=== PATIENT | female | born 1950 | race Caucasian/White ===

== ENCOUNTER 2016-05-31 04:56 | Inpatient (IN) ==
[2016-05-31] MEDS ORDERED: NS 500 ML IV ONE ×2 (05:07→12:02)
[2016-05-31 05:23] LABS: MANUAL DIFF NEEDED? NO
[2016-05-31 05:26] LABS: BASO% 0.2 % (0.0-0.8); EOS# 0.01 X1000 (0.0-0.7); EOS% 0.1 % (0.0-10.0); HEMATOCRIT 31.4 % (37.0-47.0); HEMOGLOBIN 10.2 g/dL (12.0-16.0); IMM GRAN# 0.02 X1000 (0.0-0.04); IMM GRAN% 0.2 % (0.0-0.5); LYMPH# 1.23 X1000 (1.2-3.4); LYMPH% 10.1 % (20.5-51.1); MCH 28.3 PG (27-31); MCHC 32.5 g/dL (33-37); MONO# 0.85 X1000 (0.11-0.59); MPV 10.5 FL (7.4-10.4); NEUT% 82.4 % (42.2-75.2); PLT 293 X1000 (130-400); RBC 3.61 XMIL (4.2-5.4)
[2016-05-31 06:07] LABS: CALCIUM 9.1 mg/dL (8.8-10.2); POTASSIUM 3.1 mmol/L (3.5-5.1); TOTAL BILIRUBIN 0.2 mg/dL (0.20-1.00)
[2016-05-31] MEDS ORDERED: NS 1,000 ML IV ONE ×2 (06:30→09:57)
[2016-05-31] MEDS ORDERED: KLOR-CON PO ONE (06:30)
[2016-05-31 06:56] LABS: PTT PL 39.9 Seconds (22.6-43.9)
[2016-05-31 07:16] LABS: INR 4.32 (0.86-1.15); PROTIME 40.9 Seconds (12.1-15.5)
--- NOTE | 2016-05-31 07:22 | PROVIDER DOCUMENTATION ---
HPI-Abdominal Pain/GI Problem - General Source: patient - History of Present Illness-ABD Nature of Presenting Problems: Diarrhea X 2-3 days and vomiting X 1 days with R flank pain. Denies F/C. Feels dehydrated and weak. Denies CP/SOB. H/o valve replacement X 20 years ago and currently taking Coumadin. Abdominal Pain Onset Location: reports: flank (R) Pain Radiation: reports: no radiation Quality of Pain: reports: aching, cramping Severity in ED: reports: mild, moderate Onset/Duration: reports: last night Timing: reports: still present Activities at Onset: reports: none Exposure to sick contacts?: No Modifying Factors: improves with: nothing Associated Symptoms: reports: fatigue, loss of appetite. denies: arm pain, back /neck pain, chest pain, constipation, fever/chills, nausea, vomiting, trouble walking Last BM: this morning Dark Stools Present?: reports: black Rectal Bleeding: reports: other (Bloack stools) # of Diarrhea Episodes: 10 # of Vomiting Episodes: 5 Bruising or Bleeding Gums?: No Similar Symptoms Previously?: No Recently seen or treated by another doctor?: No <Clair Bishop - Last Filed: 05/31/16 07:17> <Piyush Ugarte - Last Filed: 05/31/16 10:19> - General Chief Complaint: N/V/D Stated Complaint: diarrhea x 2 days Time Seen by Provider: 05/31/16 06:07 Allergies/Adverse Reactions: Patient Allergies Allergy/AdvReac Type Severity Reaction Status Date / Time codeine Allergy Mild HIVES Verified 05/31/16 05:02 oxycodone HCl * Allergy Mild HIVES Verified 05/31/16 05:02 [From Percocet] Penicillins Allergy Mild HIVES Verified 05/31/16 05:02 hydromorphone HCl * Allergy Unknown Verified 05/31/16 05:02 [From Dilaudid] Home Medications: Home Medication List Medication Instructions Recorded Confirmed Last Taken Type Furosemide [Lasix] 40 mg PO DAILY 01/22/13 05/31/16 05/30/16 History Gabapentin [Neurontin] 600 mg PO 4XDAY 01/22/13 05/31/16 05/30/16 History Methadone 10 mg PO [id number] PRN 01/22/13 05/31/16 05/30/16 History SIMVAstatin [Zocor] 40 mg PO QHS 01/22/13 05/31/16 05/30/16 History Ascorbic Acid [Vitamin C] 1,000 mg PO DAILY #0 tablet 01/25/13 05/31/16 Rx Cyclobenzaprine [Flexeril] 10 mg PO QHS PRN 10/20/13 05/31/16 05/30/16 History Potassium Chloride 10 meq PO DAILY 10/20/13 05/31/16 05/30/16 History Warfarin [Coumadin] 5 mg PO DAILY 10/20/13 05/31/16 05/30/16 History Review of Systems - Adult - REVIEW OF SYSTEMS - ADULT Constitutional: reports: see HPI, fatique. denies: chills, fever, weight loss Eyes: reports: no symptoms reported Ears, Nose, Mouth & Throat: reports: no symptoms reported Cardiovascular: reports: no symptoms reported Respiratory: reports: no symptoms reported Gastrointestinal: reports: see HPI, abdominal pain, diarrhea, nausea, poor appetite, rectal bleeding, vomiting. denies: difficulty swallowing, frequent heartburn Genitourinary: reports: no symptoms reported Musculoskeletal: reports: no symptoms reported Integumentary: reports: no symptoms reported Neurological: reports: no symptoms reported Psychiatric: reports: no symptoms reported Allergic/Immunologic: reports: no symptoms reported All Other Systems: Reviewed and Negative <Clair Bishop X - Last Filed: 05/31/16 07:17> Past History - Adult - PAST MEDICAL HISTORY-ADULT Review of Records: reports: Old Records Reviewed, Nursing Assessment Review, Medications Reviewed, Social history reviewed & non-contributory. Cardiovascular: reports: HTN, heart valve problem (Mitral Valve replaced) Neurological: reports: Seizures/Epilepsy - PRIOR SURGERIES/PROCEDURES Surgical/Procedure History: reports: cholecystectomy, hysterectomy, other ( mitral valve replacement) - IMMUNIZATION STATUS Childhood Immunizations: See Nurse Assessment Flu Vaccine: See Nurse Assessment <Clair Bishop - Last Filed: 05/31/16 07:17> Physical Exam-General - PHYSICAL EXAM-ADULT Initial Vital Signs Reviewed: Yes - CONSTITUTIONAL General Appearance: appears well, alert, no apparent distress - EYES Eyes: PERRL/EOMI, pink conjunctivae - HEAD, EARS, NOSE, MOUTH & THROAT HENMT: normocephalic/atraumatic, moist mucous membranes, normal ENT inspection - NECK Neck: non-tender, full range of motion, supple - RESPIRATORY Respiratory: chest non-tender, lungs clear, normal breath sounds, no pleuratic chest pain, no respiratory distress, no accessory muscle use. negative: crackles, rales - CARDIOVASCULAR Cardiovascular: normal peripheral pulses, regular rate, rhythm, no edema - GASTROINTESTINAL (ABDOMEN) Abdominal Exam: normal bowel sounds, non tender, soft, no organomegaly, tenderness (Mild R flank tenderness, no guarding and no rebound.). negative: distended, guarding, rigid, rebound - MUSCULOSKELETAL Back Exam: normal inspection, no CVA tenderness, no vertebral tenderness Extremity: normal range of motion, non-tender, normal gait - SKIN Integumentary: normal color, normal turgor, warm/dry - NEUROLOGIC Neurologic: grossly normal, no motor/sensory deficits, abnormal gait - PSYCHIATRIC Psych/Mental Status: normal mood/affect, normal thought content, normal thought process, oriented x 3 <Clair Bishop X - Last Filed: 05/31/16 07:17> Progress - PLAN OF CARE/RESULTS Progress/Plan/Lab Results: Orders Category Date Time Status CT ABD/PELVIS W/ IV CONT ONLY [CT] Stat Exams 05/31/16 06:47 Completed CBC WITH DIFF [HEME] Stat Lab 05/31/16 05:15 Completed CBC WITH ELECTRONIC DIFF [HEME] Stat Lab 05/31/16 10:07 Ordered COMPREHENSIVE METABOLIC PANEL [CHEM] Stat Lab 05/31/16 05:15 Completed OCCULT BLOOD SCREEN STOOL PL Stat Lab 05/31/16 08:35 Completed PROTIME WITH INR PL [COAG] Stat Lab 05/31/16 05:[address] [COAG] Stat Lab 05/31/16 05:12 Completed TYPE & SCREEN [BBK] Stat Lab 05/31/16 10:08 Ordered 0.9% Sodium Chloride Inj [Ns] 1,000 ml Med 05/31/16 09:45 Discontinued .ROUTE As Directed 0.9% Sodium Chloride Inj [Ns] 1,000 ml Med 05/31/16 06:30 Discontinued IV 999 mls/hr 0.9% Sodium Chloride Inj [Ns] 1,000 ml Med 05/31/16 09:57 Active IV 999 mls/hr 0.9% Sodium Chloride Inj [Ns] 500 ml Med 05/31/16 05:07 Discontinued IV 999 mls/hr Potassium Chloride E.r. [Klor-Con] Med 05/31/16 06:30 Discontinued 40 meq PO NOW ONE Vital Signs - 24 hr 05/31/16 05/31/16 05/31/16 04:57 05:06 07:46 Temperature 98.4 F Pulse Rate 100 H 103 H 96 H Respiratory 18 21 19 Rate Blood Pressure 82/59 92/65 111/073 O2 Sat by Pulse 98 100 99 Oximetry 05/31/16 05/31/16 09:21 10:15 Temperature 97.8 F Pulse Rate 93 H 100 H Respiratory 18 20 Rate Blood Pressure 090/061 93/51 O2 Sat by Pulse 99 100 Oximetry Laboratory Tests 05/31/16 05/31/16 05/31/16 05:12 05:15 05:15 WBC 12.14 H RBC 3.61 L Hgb 10.2 L Hct 31.4 L MCV 87.0 MCH 28.3 MCHC 32.5 L RDW Std Deviation 15.6 H Plt Count 293 MPV 10.5 H Immature Gran % (Auto) 0.2 Neut % (Auto) 82.4 H Lymph % (Auto) 10.1 L [place] % (Auto) 7.0 Eos % (Auto) 0.1 Baso % (Auto) 0.2 Immature Gran # (Auto) 0.02 Neut # (Auto) 10.00 H Lymph # (Auto) 1.23 [place] # (Auto) 0.85 H Eos # (Auto) 0.01 Baso # (Auto) 0.03 PT 40.9 H INR 4.32 H APTT (Factor Assay) 39.9 Sodium 137 Potassium 3.1 L Chloride 100 Carbon Dioxide 24 L Anion Gap 13 BUN 51 H Creatinine 1.1 H Estimated GFR/1.73 m2 50 BUN/Creatinine Ratio 46 Glucose 93 Calculated Osmolality 287 Calcium 9.1 Total Bilirubin 0.20 AST 20 ALT 11 Alkaline Phosphatase 65 Total Protein 6.0 L Albumin 4.0 Globulin 2.0 Albumin/Globulin Ratio 2.0 Stool Occult Blood 05/31/16 08:35 WBC RBC Hgb Hct MCV MCH MCHC RDW Std Deviation Plt Count MPV Immature Gran % (Auto) Neut % (Auto) Lymph % (Auto) [place] % (Auto) Eos % (Auto) Baso % (Auto) Immature Gran # (Auto) Neut # (Auto) Lymph # (Auto) [place] # (Auto) Eos # (Auto) Baso # (Auto) PT INR APTT (Factor Assay) Sodium Potassium Chloride Carbon Dioxide Anion Gap BUN Creatinine Estimated GFR/1.73 m2 BUN/Creatinine Ratio Glucose Calculated Osmolality Calcium Total Bilirubin AST ALT Alkaline Phosphatase Total Protein Albumin Globulin Albumin/Globulin Ratio Stool Occult Blood POSITIVE A - CT/MRI 1 CT Study: Abdomen, Pelvis Impression: Abnormal (mild biliary ductal prominence which likely relates to the postcholecystectomy state. Mild uncomplicated colonic diverticulosis;no other visible acute process no bowel obstruction. unremarkable appendix;no abscess no free air) - CONSULTS/PCP/HOSPITALIST Notification #1 *Consult/PCP/Hospitalist*: Time Discussed: 10:17 Reason/Comments: accepted admit to [facility] Consult Disposition: Admit <Piyush Ugarte - Last Filed: 05/31/16 10:19> Departure <Clair Bishop - Last Filed: 05/31/16 07:17> - Departure Time of Disposition Order: 10:18 Certified Medical Emergency: Emergent <Piyush Ugarte - Last Filed: 05/31/16 10:19> - Departure DIAGNOSIS: Lower GI bleed, Dehydration, Supratherapeutic INR Hypertension Qualifiers: Hypertension type: unspecified secondary hypertension Qualified Code(s): I15.9 - Secondary hypertension, unspecified; I15 - Secondary hypertension Disposition: ADMITTED INPATIENT 09 Condition: Stable Attestation - Scribe Verification/Attestation Scribe:: Piyush Ugarte Acting as Scribe for:: Clair Bishop Scribe documention review:: This chart was documented by a scribe and accurately reflects the service the provider performed and the decisions made by the provider. <Piyush Ugarte - Last Filed: 05/31/16 10:19> Physician Attestation
--- NOTE | 2016-05-31 07:51 | Diag Imaging Result Document ---
PROCEDURE NAME: CT ABD/PELVIS W/ IV CONT ONLY - 05/31/2016 CT ABDOMEN PELVIS WITH IV CONTRAST ONLY: TECHNIQUE: Exam performed with intravenous contrast only per request of the referring provider. A dose reduction protocol was used. Compared with 06/09/2014. FINDINGS: The visualized lung bases are clear. The gallbladder is surgically absent. There is mild biliary ductal prominence, which is decreased compared to previous exam, which likely relates to the post-cholecystectomy state. There is no calcified common duct stone identified. There is no pancreatic mass or inflammation identified. There are no other substantial abnormalities of the liver, spleen, or adrenal glands identified. The bilateral kidneys enhance homogeneously. There is no hydronephrosis. There are no substantially enlarged lymph nodes identified. There is no evidence of bowel obstruction. The appendix appears normal. There is mild uncomplicated colonic diverticulosis. There is no substantial bowel wall thickening identified. There is no abscess identified. There is no free air. Images of pelvis otherwise show postsurgical changes of partial hysterectomy. There is no abnormal pelvic mass or fluid collection identified. IMPRESSION: 1. Mild biliary ductal prominence which likely relates to the postcholecystectomy state. 2. Mild uncomplicated colonic diverticulosis. 3. No other visible acute process. No bowel obstruction. Unremarkable appendix. No abscess. No free air.
[2016-05-31 08:44] LABS: OCCULT BLOOD 1 POSITIVE (NEGATIVE)
[2016-05-31] MEDS ORDERED: NS 1,000 ML ONE (09:45)
[2016-05-31 10:26] LABS: MANUAL DIFF NEEDED? NO
[2016-05-31 10:29] LABS: BASO% 0.3 % (0.0-0.8); HEMATOCRIT 23.3 % (37.0-47.0); HEMOGLOBIN 7.6 g/dL (12.0-16.0); IMM GRAN# 0.01 X1000 (0.0-0.04); IMM GRAN% 0.1 % (0.0-0.5); LYMPH# 0.78 X1000 (1.2-3.4); LYMPH% 10.1 % (20.5-51.1); MCH 28.8 PG (27-31); MCHC 32.6 g/dL (33-37); MCV 88.3 FL (81-99); MONO# 0.17 X1000 (0.11-0.59); MONO% 2.2 % (1.7-9.3); MPV 10.5 FL (7.4-10.4); NEUT% 87.3 % (42.2-75.2); PLT 209 X1000 (130-400); RBC 2.64 XMIL (4.2-5.4)
[2016-05-31] MEDS ORDERED: PROTONIX 80 MG in NS 80 ML IV ONE (12:05)
[2016-05-31] MEDS ORDERED: VITAMIN K 10 MG in NS 50 ML IV ONE (13:00)
[2016-05-31] MEDS: D5 NS 1,000 ML IV SCH ×2 (14:36→23:31)
[2016-05-31] MEDS: PROTONIX 80 MG in NS 80 ML IV SCH ×2 (14:37→23:16)
[2016-05-31] MEDS: CARAFATE LIQUID PO SCH ×2 (14:43→20:27)
--- NOTE | 2016-05-31 16:24 | EKG Report ---
Test Performed on : 05/31/2016 4:12:28 PM Test Reason : pre-op Blood Pressure : / mmHG Vent. Rate : 092 BPM Atrial Rate : 092 BPM P-R Int : 170 ms QRS Dur : 082 ms QT Int : 358 ms P-R-T Axes : 073 048 -10 degrees QTc Int : 442 ms Normal sinus rhythm. Normal ECG No previous ECGs available Confirmed by Jerry CHAPPELL, Ayan West ([id number]) on 05/31/2016 8:01:04 PM
[2016-05-31 16:31] LABS: MANUAL DIFF NEEDED? NO
[2016-05-31 16:59] LABS: BASO% 0.2 % (0.0-0.8); HEMATOCRIT 22.2 % (37.0-47.0); HEMOGLOBIN 7.1 g/dL (12.0-16.0); LYMPH# 1.17 X1000 (1.2-3.4); MCH 28.5 PG (27-31); MCV 89.2 FL (81-99); MONO# 0.44 X1000 (0.11-0.59); MONO% 5.3 % (1.7-9.3); MPV 10.6 FL (7.4-10.4); NEUT% 80.5 % (42.2-75.2); PLT 238 X1000 (130-400); RBC 2.49 XMIL (4.2-5.4)
[2016-05-31] MEDS: NUBAIN IV PRN (19:05)
[2016-05-31] MEDS: POTASSIUM CHLORIDE 20 MEQ/SWI 100 ML IV SCH ×2 (19:05→22:38)
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
--- NOTE | 2016-05-31 20:58 | CONSULTATION ---
DATE OF CONSULTATION: 05/31/2016 ADMITTING PHYSICIAN: Dr. Rock Osborne. REASON FOR CONSULTATION: Melena. HISTORY OF PRESENT ILLNESS: Ms. Dillon is a 65-year-old female who was admitted on 05/31/2016 with new onset of melena going on for the last 3 days. According to the patient , she started having watery black stools which worsened over the last 24 hours. According to the patient, she passed out in the bathroom after a BM and was taken to the [facility] [place]. There, she underwent imaging and hydration, and was sent to [facility] for GI workup. She has been on Coumadin for mitral valve replacement since the . She does take occasional NSAIDs like Motrin for severe headache. She denies any history of abdominal pain, nausea, vomiting, vomiting blood, or coffee-grounds emesis. She denies any bright red blood in the stools. Her last EGD was done in June 2014 and there was reported to be diverticulosis. Since being in the hospital, her hematocrit has dropped to 23% and she is being started on Protonix, Vitamin K, and FFP, and the plan is to give her some units of blood. PAST MEDICAL HISTORY: 1. Mitral valve replacement, on chronic Coumadin therapy since . 2. Epilepsy. 3. Seizures. 4. Hypertension. 5. Reflux. 6. Diverticulosis. 7. Chronic pain. PAST SURGICAL HISTORY: Cholecystectomy, hysterectomy, mitral valve replacement in the , EGD in June 2014. SOCIAL HISTORY: She smokes 1 pack a day. She drinks occasionally. She currently lives with family. MEDICATIONS AT HOME: Lasix, simvastatin, methadone, gabapentin, vitamin C, warfarin, and Flexeril. ALLERGIES: Codeine, oxycodone, penicillin, hydromorphone. MEDICATIONS IN HOSPITAL: Protonix drip, vitamin K, and Carafate. She is currently n.p.o. REVIEW OF SYSTEMS: The patient denies any fevers, rigors, chills, chest pain, shortness breath, or dyspnea at rest. Denies any genitourinary complaints. She denies any blood in the urine. Denies any vomiting blood. Denies any neurologic complaints. PHYSICAL EXAMINATION: Vital Signs: Temperature 97.8 degrees, pulse rate of 95 , respiratory rate 19, blood pressure 108/59, saturating 99% on room air. Body weight 116 pounds 1 ounce. BMI of 21.9. General Appearance: The patient is thinly built, lying in bed in no acute distress. HEENT: Pale conjunctivae. No icterus. Pupils equal, react to light. Neck: Supple. Chest: decreased breath sounds at the bases Cardiac: Regular rate and rhythm. Tachycardic at times. Abdomen: Soft, nontender, nondistended. Bowel sounds are normal. No rebound. No guarding. Extremities: No cyanosis, clubbing, edema. Neurologic: She is alert, awake, oriented x3. LABORATORY AND IMAGING STUDIES: Hemoglobin and hematocrit are 7.6 and 23.8, white count 7.7, platelet count of 209,000, MCV 88.3. INR of 4.32, PT of 40.9, PTT of 39.9. Sodium 137, potassium 3.1, chloride 100, bicarbonate 24, anion gap of 13, BUN 50, creatinine 1.1, glucose of 93, calcium 9.1, total bilirubin 0.2, AST 20, ALT 11, alkaline phosphatase, total protein 6 , albumin of 4, lactate of 1.1. Stool for occult blood was positive. CT scan of the abdomen and pelvis done on 05/31/2016 showed: 1. Mild biliary ductal prominence, which likely relates to post cholecystectomy state. 2. Mild uncomplicated colonic diverticulosis. 3. No other visible acute process. No bowel obstruction. Unremarkable appendix. No abscess. No free air. IMPRESSIONS: 1. Melena. 2. Anemia. 3. Coagulopathy, iatrogenic, secondary to Coumadin for mitral valve replacement since 1980s. 4. Chronic pain. 5. Reflux disease. 6. Diverticulosis of the colon. RECOMMENDATIONS: 1. Will keep a close eye on patient's hemoglobin and hematocrit. Will check it every 6 hours for 24 hours. We will type and cross, and transfuse to hematocrit more than 27%. 2. The patient will continue on Protonix drip and Carafate. 3. The patient will be scheduled for EGD tomorrow, once INR is less than 1.5. 4. We will give a dose of vitamin K, and she is already scheduled to get FFP 3 packs today. 5. We will keep her on IV fluids for now. 6. Once she is adequately resuscitated and her INR is corrected, we will plan for endoscopic intervention. I discussed the procedure of EGD with the patient along with risks, benefits, indications, and alternatives. The patient acknowledged this and agreed to proceed with the above. I discussed the plan with the patient and the nurse at bedside. All questions were answered. [email or web address]
[2016-06-01] MEDS: CARAFATE LIQUID PO SCH ×4 (02:32→21:17)
[2016-06-01] MEDS: NUBAIN IV PRN (02:32)
[2016-06-01 07:49] LABS: AGAP 13; BUN 21 mg/dL (8-22); CALCIUM 8.8 mg/dL (8.8-10.2); CHLORIDE 109 mmol/L (98-107); COSMO 291; POTASSIUM 3.8 mmol/L (3.5-5.1); SODIUM 144 mmol/L (136-145); TCO2 22 mmol/L (25-35)
[2016-06-01 08:24] LABS: BASO% 0.2 % (0.0-0.8); HEMATOCRIT 24.5 % (37.0-47.0); HEMOGLOBIN 7.9 g/dL (12.0-16.0); IMM GRAN# 0.02 X1000 (0.0-0.04); IMM GRAN% 0.3 % (0.0-0.5); LYMPH# 0.56 X1000 (1.2-3.4); LYMPH% 8.9 % (20.5-51.1); MCH 28.3 PG (27-31); MCHC 32.2 g/dL (33-37); MCV 87.8 FL (81-99); MONO# 0.33 X1000 (0.11-0.59); MONO% 5.3 % (1.7-9.3); MPV 10.6 FL (7.4-10.4); NEUT% 85.3 % (42.2-75.2); PLT 149 X1000 (130-400); RBC 2.79 XMIL (4.2-5.4)
[2016-06-01] MEDS: PROTONIX 80 MG in NS 80 ML IV SCH ×2 (08:34→21:17)
[2016-06-01 08:41] LABS: INR 1.03; PROTIME 10.8 Seconds (9.2-11.7)
[2016-06-01] MEDS ORDERED: NS 500 ML IV ONE (09:06)
[2016-06-01 09:21] LABS: MANUAL DIFF NEEDED? YES
[2016-06-01 09:23] LABS: LYMPHS 10 % (21-51); MONO 6 % (1-9)
[2016-06-01] MEDS ORDERED: MYLICON DROPS (DOSE) MISC ONE (13:04)
[2016-06-01] MEDS ORDERED: ANESTHESIA PB SET 88 IN 5742 ONE (15:27)
[2016-06-01] MEDS ORDERED: LR 1,000 ML ONE (15:27)
[2016-06-01] MEDS ORDERED: XYLOCAINE-MPF 2% ONE (15:27)
[2016-06-01] MEDS: D5 NS 1,000 ML IV SCH ×2 (16:42→21:17)
[2016-06-02] MEDS: CARAFATE LIQUID PO SCH ×4 (01:57→20:10)
[2016-06-02] MEDS ORDERED: ATIVAN ONE (06:10)
[2016-06-02] MEDS ORDERED: NUBAIN IV ONE (06:11)
[2016-06-02] MEDS ORDERED: ATIVAN IV ONE (06:11)
[2016-06-02] MEDS: PROTONIX 80 MG in NS 80 ML IV SCH ×2 (06:35→18:00)
[2016-06-02] MEDS ORDERED: VENOFER 300 MG in NS 150 ML IV ONE (11:51)
[2016-06-02] MEDS ORDERED: METHADONE ONE (13:14)
[2016-06-02] MEDS: METHADONE PO SCH ×2 (14:30→20:10)
[2016-06-02] MEDS: D5 NS 1,000 ML IV SCH ×2 (16:29→18:00)
[2016-06-02 16:39] LABS: BASO% 0.5 % (0.0-0.8); EOS# 0.01 X1000 (0.0-0.7); EOS% 0.2 % (0.0-10.0); HEMATOCRIT 28.8 % (37.0-47.0); HEMOGLOBIN 9.4 g/dL (12.0-16.0); IMM GRAN# 0.04 X1000 (0.0-0.04); IMM GRAN% 0.7 % (0.0-0.5); LYMPH# 0.88 X1000 (1.2-3.4); LYMPH% 15.6 % (20.5-51.1); MANUAL DIFF NEEDED? NO; MCH 28.8 PG (27-31); MCHC 32.6 g/dL (33-37); MCV 88.3 FL (81-99); MONO# 0.47 X1000 (0.11-0.59); MONO% 8.3 % (1.7-9.3); MPV 10.5 FL (7.4-10.4); NEUT% 74.7 % (42.2-75.2); PLT 157 X1000 (130-400); RBC 3.26 XMIL (4.2-5.4)
[2016-06-02 16:43] LABS: PROTIME 10.8 Seconds (9.2-11.7)
[2016-06-02 16:44] LABS: INR 1.03
[2016-06-02 16:53] LABS: AGAP 11; BUN 16 mg/dL (8-22); CALCIUM 8.4 mg/dL (8.8-10.2); CHLORIDE 108 mmol/L (98-107); COSMO 283; POTASSIUM 3.5 mmol/L (3.5-5.1); SODIUM 141 mmol/L (136-145); TCO2 22 mmol/L (25-35)
[2016-06-03] MEDS: CARAFATE LIQUID PO SCH ×4 (02:37→20:32)
[2016-06-03] MEDS: METHADONE PO SCH ×4 (02:37→20:32)
[2016-06-03] MEDS: PROTONIX 80 MG in NS 80 ML IV SCH ×2 (02:38→04:00)
[2016-06-03] MEDS: D5 NS 1,000 ML IV SCH (02:44)
[2016-06-03 05:27] LABS: MANUAL DIFF NEEDED? NO
[2016-06-03 05:37] LABS: BASO% 0.4 % (0.0-0.8); EOS# 0.02 X1000 (0.0-0.7); EOS% 0.3 % (0.0-10.0); HEMATOCRIT 29.2 % (37.0-47.0); HEMOGLOBIN 9.6 g/dL (12.0-16.0); IMM GRAN# 0.02 X1000 (0.0-0.04); IMM GRAN% 0.3 % (0.0-0.5); LYMPH% 17.6 % (20.5-51.1); MCH 29.3 PG (27-31); MCHC 32.9 g/dL (33-37); MONO# 0.59 X1000 (0.11-0.59); MONO% 8.7 % (1.7-9.3); MPV 10.9 FL (7.4-10.4); NEUT% 72.7 % (42.2-75.2); PLT 181 X1000 (130-400); RBC 3.28 XMIL (4.2-5.4)
[2016-06-03 05:40] LABS: INR 1.03; PROTIME 10.5 Seconds (9.2-11.7)
[2016-06-03 05:57] LABS: AGAP 11; BUN 9 mg/dL (8-22); CALCIUM 8.1 mg/dL (8.8-10.2); CHLORIDE 106 mmol/L (98-107); COSMO 276; POTASSIUM 3.4 mmol/L (3.5-5.1); SODIUM 139 mmol/L (136-145); TCO2 22 mmol/L (25-35)
[2016-06-03] MEDS ORDERED: PROTONIX IV SCH (12:28)
--- NOTE | 2016-06-03 13:32 | PROGRESS NOTE ---
DATE: 06/03/2016 INTERVAL HISTORY: The patient had EGD done by Dr. Maher showed gastritis. No signs of active bleeding or ulcer noted. Previous colonoscopy is unremarkable. Patient did receive 3 units of packed RBCs. She also received yesterday 300 mg of Venofer infusion. She has been withdrawing from pain and smoking. She does not want to use Nicotrol patches. PAST MEDICAL HISTORY: Medications were reviewed. REVIEW OF SYSTEMS: Pretty much unremarkable. PHYSICAL EXAMINATION: Vital Signs: Temperature is 98 degrees vitals are stable. HEENT: Atraumatic, normocephalic. Pupils equal, react to light. No anemia. Neck: Supple. Chest: Clear to auscultation. Heart: Sounds are regular. Loud S1. Belly is soft. No signs of peritonitis. Extremities: No peripheral edema, cyanosis or clubbing. Neurologic: No obvious deficits. INVESTIGATIONS: CBC: White cell count 6.8, hematocrit 29.2, platelets 181,000. PT/INR is normal. SMA 7 is normal except potassium 3.4. ASSESSMENT AND PLAN: 1. Gastrointestinal bleeding, status post 3 units of packed RBC. Reverse the Coumadin. INR is normal. Currently stable. EGD was unremarkable. Continue IV Protonix and check orthostatic blood pressure as well as stool for occult blood. 2. Chronic pain. Methadone was restarted. 3. History of prosthetic mitral valve on Coumadin on hold because of recent GI bleed. 4. Chronic tobacco abuse. Refusing nicotine cessation programs. PLAN OF CARE: Today,discontinue IV fluids. Check orthostatic blood pressure. Follow up on CBC and stool occult blood. If she is stable will be discharged and we will consider outpatient capsule endoscopy and colonoscopy. We will discuss with Dr. Maher. cc: Matias Osborne MD
[2016-06-04] MEDS: CARAFATE LIQUID PO SCH ×4 (02:01→20:20)
[2016-06-04] MEDS: METHADONE PO SCH ×4 (02:01→20:20)
[2016-06-04] MEDS: NUBAIN IV PRN (02:52)
[2016-06-04 05:05] LABS: MANUAL DIFF NEEDED? NO
[2016-06-04 05:07] LABS: BASO% 0.3 % (0.0-0.8); EOS# 0.06 X1000 (0.0-0.7); EOS% 0.9 % (0.0-10.0); HEMATOCRIT 29.9 % (37.0-47.0); IMM GRAN# 0.03 X1000 (0.0-0.04); IMM GRAN% 0.4 % (0.0-0.5); LYMPH# 0.63 X1000 (1.2-3.4); MCH 29.5 PG (27-31); MCHC 33.4 g/dL (33-37); MCV 88.2 FL (81-99); MONO# 0.57 X1000 (0.11-0.59); MONO% 8.1 % (1.7-9.3); MPV 10.1 FL (7.4-10.4); NEUT% 81.3 % (42.2-75.2); PLT 203 X1000 (130-400); RBC 3.39 XMIL (4.2-5.4)
[2016-06-04 05:30] LABS: AGAP 14; BUN 8 mg/dL (8-22); CALCIUM 8.6 mg/dL (8.8-10.2); CHLORIDE 107 mmol/L (98-107); COSMO 281; SODIUM 142 mmol/L (136-145); TCO2 21 mmol/L (25-35)
[2016-06-04 05:52] LABS: INR 1.04; PROTIME 10.9 Seconds (9.2-11.7)
[2016-06-04] MEDS: PROTONIX PO SCH (06:17)
[2016-06-04] MEDS ORDERED: KLOR-CON PO ONE (08:11)
--- NOTE | 2016-06-04 08:35 | PROGRESS NOTE ---
DATE: 06/04/2016 SUBJECTIVE/INTERVAL HISTORY: The patient denies of any bleeding per rectum. No dizziness upon standing. Ambulating very well. Pain is adequately controlled. REVIEW OF SYSTEMS: None reported. EXAMINATION: Vital Signs: Stable, afebrile. Patient is not orthostatic. Upon standing, blood pressure is 113/66. Weight 128 pounds. HEENT Examination: Atraumatic, normocephalic. Pupils equal, react to light. Slightly pale. Neck: Supple. Chest: Clear to auscultation. Heart: Sounds are regular. Loud S1. Abdomen: Belly is soft. No signs of peritonitis noted. Neurologic Examination: No obvious focal deficits. INVESTIGATIONS: CBC: White cell count 7, hematocrit 30, platelets 203,000. PT and INR are normal. SMA 7: Sodium 142, potassium 3, chloride 107, BUN 8, creatinine 0.9, and calcium 8.6. ASSESSMENT AND PLAN: 1. Occult gastrointestinal bleeding. Negative gastrointestinal workup and currently stable off Coumadin. Plan is we will schedule for capsule endoscopy with Dr. Barriga. If she is stable, will be discharged in the morning. 2. Chronic pain, on methadone. 3. Hypokalemia. Replace the potassium. 4. Follow up on Hemoccult stools and repeat the labs in the morning. 5. Nicotine abuse. Not interested in cessation programs. We will follow up. cc: Matias Osborne MD
--- NOTE | 2016-06-04 13:36 | PROGRESS NOTE ---
DATE: 06/04/2016 SUBJECTIVE: Patient is currently resting in bed. She is feeling better. She denies any nausea, vomiting, or vomiting blood. She denies any blood in the stools. She had her last bowel movement 2 days ago. She was able to eat 50% of her breakfast this morning. Her is at the bedside. She had last transfusion on 06/01/2016 when she got 1 unit of packed cells and 2 units of FFP. In total, she received 3 units of FFP and 3 units of packed cells during this admission. She had an EGD which is unrevealing. Patient's Coumadin has been held because of the GI bleeding. We discussed with Dr. Osborne and the family and the patient about the possibility of doing a colonoscopy as her esophagogastroduodenoscopy was unremarkable. We will plan to do it tomorrow. OBJECTIVE: Vital Signs: Temperature 98.3, pulse rate of 74, respiratory 14, blood pressure 190/97, saturating 98% on room air. General Appearance: Thinly built, lying in bed, in no acute distress. HEENT: Pale conjunctivae. No icterus. Pupils equal, react to light. Neck is supple. Chest is decreased. Cardiac: Regular rhythm. No murmur. Abdomen is soft, nontender, nondistended. Bowel sounds. No rebound. Extremities: No cyanosis, clubbing or edema. Neurologic: Alert, awake, oriented. LABORATORY DATA: Hemoglobin and hematocrit is 10.0 and 29.9, white count of 7, platelet count of 203,000. Sodium 142, potassium 3, chloride 107, bicarb 21, anion gap of 14. BUN of 8 creatinine 0.9, glucose of 94, calcium 8.6. AST 20, ALT 11, alkaline phosphatase 61, total protein 6, albumin of 4. Lactate of 1.1, INR 1.04. Stool occult was positive. IMPRESSION AND PLAN: 1. Positive Hemoccult. Negative esophagogastroduodenoscopy. While the patient is off Coumadin, her INR is normal. It is an opportunity to do a colonoscopy to evaluate for any kind of colonic arteriovenous malformations or any occult sources of gastrointestinal bleeding. Of note, she did have her last colonoscopy in 06/2014 which was unremarkable. 2. Anemia. Continue to watch and transfuse as needed. I will start her on iron supplementation after the colonoscopy. 3. Chronic pain, on methadone. 4. Chronic smoker. Patient counseled to quit smoking. 5. Gastrointestinal prophylaxis with Protonix. 6. Bowel regimen will be started after colonoscopy. The risks, benefits, indications, and alternatives to the colonoscopy were explained to the patient and family. cc: MD Matias Falcon MD
[2016-06-04] MEDS ORDERED: GOLYTELY PO ONE (14:00)
[2016-06-05] MEDS: METHADONE PO SCH ×3 (01:33→17:43)
[2016-06-05] MEDS: CARAFATE LIQUID PO SCH ×3 (01:33→17:42)
[2016-06-05] MEDS: PROTONIX PO SCH (08:44)
[2016-06-05] MEDS ORDERED: DIPRIVAN 1% ONE (15:05)
[2016-06-05 15:12] VITALS: BP 138/79
[2016-06-05] MEDS ORDERED: XYLOCAINE-MPF 2% ONE (15:17)
--- NOTE | 2016-06-05 15:17 | OPERATIVE NOTE ---
PROCEDURE DATE: 06/05/2016 PROCEDURE: Colonoscopy. PREOPERATIVE DIAGNOSIS: Rule out colitis. POSTOPERATIVE DIAGNOSES: Diverticulosis. No evidence of colitis. No evidence of bleeding. DESCRIPTION OF PROCEDURE: After informed consent and adequate intravenous sedation by Anesthesia, the scope introduced all the way to the cecum. Entire colon was carefully examined. There is scattered diverticulosis present. No polyps, tumors, angiodysplasia, telangiectasias, or colitis. No fresh or old blood seen. The scope was withdrawn. The patient tolerated the procedure well without any immediate complications. cc: MD Matias Owen MD
--- NOTE | 2016-06-05 20:59 | DISCHARGE SUMMARY ---
ADMISSION DATE: 05/31/2016 DISCHARGE DATE: 06/05/2016 DISCHARGING DIAGNOSIS: Anemia due to acute blood loss from gastrointestinal occult bleeding. SECONDARY DIAGNOSES: 1. History of prosthetic mitral valve replacement. 2. Osteoporosis. 3. Chronic back pain on methadone. 4. Hyperlipidemia. CONSULTANTS: Dr. Maher. PROCEDURES: 1. Transfusion of 3 units of FFP. 2. Transfusion of 3 units of packed RBCs. 3. EGD and colonoscopy. No signs of active ulcer or bleeding or polyp or AV malformation noted. BRIEF HISTORY: Please see the H and P that was done on 05/31/2016. In brief, she is a 65-year- old white female who was admitted to the hospital after evaluated in the [facility] with passing black stools, heme-positive, hypertension, declining of hematocrit. The patient has been on Coumadin under the care of Dr. Sherman for prosthetic mitral valve. INR was 4.5. She was transferred in a step-down in [facility] in a stable condition. She was given IV fluids. In the meantime, INR was reversed by giving vitamin K and FFP. She was given hematological support as needed to maintain hematocrit close to 30. The patient was seen by Dr. Arzola and Dr. Maher. She was given IV Protonix. Subsequent EGD, colonoscopy could not find the source of bleeding. There were no signs of active bleeding noted. She did 2nd time since the last admission. I did discuss these findings with the patient as well as the . She needs capsule endoscopy which will be arranged with Dr. Barriga. At the time of discharge, patient is stable. LABORATORIES: CBC: White cell count 7, hematocrit 30, platelets 203,000. PT 10, INR 1.0. SMA 7 is sodium 142, potassium 3, chloride 107, BUN 14, creatinine 0.9, glucose 8.6. DISCHARGE INSTRUCTIONS: 1. Resume the Coumadin 5 mg daily and follow up with Coumadin clinic. 2. Lasix 40 daily, simvastatin 40 daily, methadone 10 four times daily, Neurontin 600 four times daily, vitamin C 1000 mg daily, potassium 10 mEq daily, Flexeril 10 mg as needed, Icar-C Plus 1 tablet daily. 3. Follow up in my office next week. 4. Follow up with Dr. Sherman for Coumadin Clinic and will arrange the GI with Dr. Barriga of a capsule endoscopy while she has been on Coumadin. cc: MD Dr. Linus Owen
--- NOTE | 2016-06-27 10:57 | ECHO REPORT ---
ORDER DATE: 06/04/2016 MEASUREMENTS: Septal thickness 1.0, posterior wall thickness 0.8, left atrium 3.7, aortic root 3.2 SUMMARY: 1. Adequate quality study. Study performed on 06/04/2016 and resubmitted for interpretation on 06/26/2016. 2. Aortic valve is trileaflet and opens adequately on 2-dimensional images. Peak instantaneous gradient across aortic valve was less than 10 mmHg. Mitral valve has been replaced with mechanical prosthesis which appears well seated. Mitral valve prosthesis not well seen due to acoustic shadowing. Mitral valve area by pressure halftime method is 3.6 cm2 (pressure half time 60). The heart rate is 68 beats per minute. The mean gradient across the mitral valve was 4.5-5.0 mmHg. Tricuspid valve is without structural abnormality with moderate tricuspid regurgitation. The estimated systolic PA pressure by Doppler is 60-65 mmHg. Tricuspid regurgitation. Estimated systolic PA pressure by Doppler is 60-65 mmHg. Pulmonic valve not well demonstrated with mild pulmonic insufficiency. Aortic root is normal size. 3. Normal left ventricular dimensions demonstrated. Estimated left ejection fraction is approximately 70%. No regional wall motion abnormalities evident. Left atrium is moderately enlarged. Right atrium is mildly enlarged. The right ventricle is normal size with preserved right ventricular systolic function. 4. No pericardial effusion. 5. Appearance of inferior vena cava suggests normal central venous pressure. 6. Sinus rhythm during study. CONCLUSIONS: 1. Mechanical mitral valve prosthesis appears to be functioning adequately by Doppler. 2. Moderate tricuspid regurgitation with moderate to severe pulmonary hypertension by Doppler. 3. Estimated left ejection fraction 70%. 4. Moderate left atrial enlargement. cc: MD Matias Jackman MD
--- NOTE | 2016-07-06 13:09 | OPERATIVE NOTE ---
PROCEDURE DATE: 06/01/2016 PROCEDURE: Esophagogastroduodenoscopy PREOPERATIVE DIAGNOSIS: Gastrointestinal bleed. Rule out upper gastrointestinal source. POSTOPERATIVE DIAGNOSIS: Normal exam. DESCRIPTION OF PROCEDURE: After informed consent and adequate intravenous sedation by Anesthesia, the scope was introduced to the esophagus. No varices seen. Cardia, fundus, and body of the antrum normal. No fresh or old blood seen. Duodenum is normal with no AVM or any blood. Scope is withdrawn. The patient tolerated the procedure well without any immediate complications. cc: MD Matias Owen MD
== END 2016-06-05 19:00 | disposition home or self-care (01) ==
LOC: P.ED 04:56 → 3S 04:57 → 3N 06-04 22:51
PROVIDERS: ADMIT Internal Medicine; ATTEND Internal Medicine

== ENCOUNTER 2016-06-25 00:59 | Inpatient (IN) ==
[2016-06-25] MEDS ORDERED: ASPIRIN PO STA (01:12)
[2016-06-25] MEDS ORDERED: CARDIZEM 100 MG/NS 100 MG/100 ML IVPB IV SCH (01:17)
[2016-06-25] MEDS ORDERED: CARDIZEM IV ONE (01:17)
[2016-06-25 01:21] LABS: MANUAL DIFF NEEDED? NO
[2016-06-25 01:30] LABS: BASO% 0.5 % (0.0-0.8); EOS# 0.05 X1000 (0.0-0.7); EOS% 0.8 % (0.0-10.0); HEMATOCRIT 42.5 % (37.0-47.0); HEMOGLOBIN 14.2 g/dL (12.0-16.0); LYMPH% 21.1 % (20.5-51.1); MCH 29.8 PG (27-31); MCHC 33.4 g/dL (33-37); MCV 89.1 FL (81-99); MONO# 0.45 X1000 (0.11-0.59); MONO% 6.8 % (1.7-9.3); MPV 10.4 FL (7.4-10.4); NEUT% 70.8 % (42.2-75.2); PLT 325 X1000 (130-400); RBC 4.77 XMIL (4.2-5.4)
[2016-06-25 01:41] LABS: PTT 55.6 Seconds (22.0-36.0)
[2016-06-25 01:47] LABS: ALBUMIN 4.7 g/dL (3.5-5.0); CALCIUM 10.2 mg/dL (8.8-10.2); MAGNESIUM 2.5 mg/dL (1.5-2.7); POTASSIUM 4.1 mmol/L (3.5-5.1); TOTAL BILIRUBIN 0.41 mg/dL (0.20-1.00); TOTAL PROTEIN 7.6 g/dL (6.3-8.3)
[2016-06-25 01:50] LABS: INR 5.61; PROTIME 65.7 Seconds (9.2-11.7)
[2016-06-25 05:01] LABS: URINE CULTURE NEEDED? NO; URINE MICRO REVIEW NEEDED? NO; URINE SOURCE CLEAN CATCH
[2016-06-25 05:03] LABS: BILIRUBIN URINE NEGATIVE (NEGATIVE); BLOOD URINE NEGATIVE (NEGATIVE); COLOR STRAW; GLUCOSE URINE NEGATIVE (NEGATIVE); LEUKOCYTES URINE NEGATIVE (NEGATIVE); NITRITE URINE NEGATIVE (NEGATIVE); PH URINE 7.5; PROTEIN URINE NEGATIVE (NEGATIVE); SP GRAVITY URINE 1.001; TURBIDITY URINE CLEAR (CLEAR); UROBILINOGEN URINE NORMAL (NORMAL)
[2016-06-25 05:04] LABS: UR EPITHELIAL CELLS <10 /HPF (<10); URINE BACTERIA NEGATIVE /HPF; URINE RBC <10 /HPF (<10); URINE WBC <10 /HPF (<10)
--- NOTE | 2016-06-25 05:19 | PROVIDER DOCUMENTATION ---
This chart was entered by Anish Dodson Scribe, acting as scribe for Lincoln Durant MD. HPI-Cardiac General - General Chief Complaint: Palpitations Stated Complaint: palpitations Time Seen by Provider: 06/25/16 01:50 Source: patient Allergies/Adverse Reactions: Patient Allergies Allergy/AdvReac Type Severity Reaction Status Date / Time codeine Allergy Mild HIVES Verified 06/25/16 01:37 oxycodone HCl * Allergy Mild HIVES Verified 06/25/16 01:37 [From Percocet] Penicillins Allergy Mild HIVES Verified 06/25/16 01:37 hydromorphone HCl * Allergy Unknown Verified 06/25/16 01:37 [From Dilaudid] Home Medications: Home Medication List Medication Instructions Recorded Confirmed Last Taken Type Furosemide [Lasix] 40 mg PO DAILY 01/22/13 06/25/16 06/24/16 History Gabapentin [Neurontin] 600 mg PO 4XDAY 01/22/13 06/25/16 06/24/16 History Methadone 10 mg PO [id number] PRN 01/22/13 06/25/16 06/24/16 History SIMVAstatin [Zocor] 40 mg PO QHS 01/22/13 06/25/16 06/24/16 History Ascorbic Acid [Vitamin C] 1,000 mg PO DAILY #0 tablet 01/25/13 06/25/16 Rx Potassium Chloride 10 meq PO DAILY 10/20/13 06/25/16 06/24/16 History Warfarin [Coumadin] 5 mg PO DAILY 10/20/13 06/25/16 06/24/16 History Iron Carbonyl/Vit C/Vit B12/FA 1 each PO DAILY #30 tablet 06/05/16 06/25/16 Rx [Icar-C Plus] - History of Present Illness-Cardiac Nature of Presenting Problem: Pt is a 65 yof who presents to ER with CC of palpitations. 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 Pt denies hx of A-fib. Location: reports: substernal Quality of Pain: reports: pressure Severity in ED: moderate Onset/Duration: 1-3 hours ago Timing: still present, improving Palpitation Quality: fast/pounding heart beat Associated Symptoms: reports: shortness of breath. denies: abdominal pain, back pain, diaphoresis, dizziness, edema, fatigue, fever/chills, headache, heartburn, nausea, rash, swelling/lump in chest, syncope, vomiting, weakness Similar Symptoms Previously?: No Recently Seen Here or By Another Healthcare Provider: Yes Review of Systems - Adult - REVIEW OF SYSTEMS - ADULT Constitutional: denies: chills, fever, fatique, night sweats, weight gain, weight loss Eyes: reports: no symptoms reported Ears, Nose, Mouth & Throat: reports: no symptoms reported Cardiovascular: reports: chest pain, irregular heart rate, palpitations. denies : edema, heart murmur, orthopnea, poor circulation, PND, syncope Respiratory: reports: shortness of breath. denies: chronic cough, cough, dyspnea on exertion, excessive sputum production, hemoptysis, pleurisy, wheezing Gastrointestinal: reports: no symptoms reported Genitourinary: reports: no symptoms reported Musculoskeletal: reports: no symptoms reported Integumentary: reports: no symptoms reported Neurological: reports: no symptoms reported Psychiatric: reports: no symptoms reported Endocrine: reports: no symptoms reported Hematologic/Lymphatic: reports: no symptoms reported Allergic/Immunologic: reports: no symptoms reported All Other Systems: Reviewed and Negative Past History - Adult - PAST MEDICAL HISTORY-ADULT Review of Records: reports: Nursing Assessment Review, Medications Reviewed Cardiovascular: reports: HTN, heart valve problem (Mitral Valve replaced) Neurological: reports: Seizures/Epilepsy - PRIOR SURGERIES/PROCEDURES Surgical/Procedure History: reports: cholecystectomy, hysterectomy, other ( mitral valve replacement) - IMMUNIZATION STATUS Childhood Immunizations: See Nurse Assessment Flu Vaccine: See Nurse Assessment Physical Exam-General - PHYSICAL EXAM-ADULT Initial Vital Signs Reviewed: Yes - CONSTITUTIONAL General Appearance: appears well, alert, mild distress. negative: no apparent distress - EYES Eyes: PERRL/EOMI, pink conjunctivae, fundi clear, no AV nicking. negative: pale conjunctivae, photophobia, sclera injected, scleral icterus - HEAD, EARS, NOSE, MOUTH & THROAT HENMT: normocephalic/atraumatic, moist mucous membranes, normal ENT inspection, TMs normal, pharynx normal. negative: pharyngeal erythema, tonsillar exudate, TM abnormal - NECK Neck: non-tender, full range of motion, supple, normal inspection, other ( distended neck veins). negative: C-spine tenderness, limited range of motion, lymphadenopathy - RESPIRATORY Respiratory: chest non-tender, lungs clear, normal breath sounds, no pleuratic chest pain, no respiratory distress, no accessory muscle use. negative: respiratory distress, decreased breath sounds, accessory muscle use, wheezing - CARDIOVASCULAR Cardiovascular: normal peripheral pulses, tachycardia, irregularly irregular. negative: regular rate, rhythm, bradycardia - GASTROINTESTINAL (ABDOMEN) Abdominal Exam: normal bowel sounds, non tender, soft, no organomegaly, no pulsatile mass. negative: abnormal bowel sounds, distended, tenderness - MUSCULOSKELETAL Back Exam: normal inspection, no CVA tenderness, no vertebral tenderness. negative: CVA tenderness, decreased range of motion, ecchymosis, muscle spasm, swelling, vertebral tenderness Extremity: normal range of motion, non-tender, normal gait, normal inspection, no pedal edema, no calf tenderness, normal capillary refill - SKIN Integumentary: normal color, normal turgor, warm/dry. 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 negative: facial droop, focal weakness, motor weakness, sensory deficit - PSYCHIATRIC Psych/Mental Status: normal mood/affect, normal thought content, normal thought process, oriented x 3 Progress - PLAN OF CARE/RESULTS Progress/Plan/Lab Results: Vital Signs - 8 hr 06/25/16 01:23 06/25/16 02:05 06/25/16 02:46 Temperature 97.8 F Pulse Rate 97 H 73 85 Respiratory Rate 20 17 20 Blood Pressure 108/68 91/66 109/76 O2 Sat by Pulse Oximetry 100 97 97 06/25/16 03:47 06/25/16 04:55 Temperature Pulse Rate 73 72 Respiratory Rate 15 15 Blood Pressure 104/68 94/63 O2 Sat by Pulse Oximetry 96 96 Laboratory Results - last 24 hr 06/25/16 06/25/16 06/25/16 01:10 01:10 01:10 WBC 6.62 RBC 4.77 Hgb 14.2 Hct 42.5 MCV 89.1 MCH 29.8 MCHC 33.4 RDW Std Deviation 16.3 H Plt Count 325 MPV 10.4 Immature Gran % (Auto) 0.0 Neut % (Auto) 70.8 Lymph % (Auto) 21.1 Grady % (Auto) 6.8 Eos % (Auto) 0.8 Baso % (Auto) 0.5 Immature Gran # (Auto) 0.00 Neut # (Auto) 4.69 Lymph # (Auto) 1.40 Grady # (Auto) 0.45 Eos # (Auto) 0.05 Baso # (Auto) 0.03 PT INR PTT (Actin FS) D-Dimer 0.10 Sodium 137 Potassium 4.1 Chloride 94 L Carbon Dioxide 27 Anion Gap 16 BUN 9 Creatinine 1.0 H Estimated GFR/1.73 m2 56 BUN/Creatinine Ratio 9 Glucose 93 Calculated Osmolality 272 Calcium 10.2 Magnesium 2.5 Total Bilirubin 0.41 AST 44 H ALT 21 Alkaline Phosphatase 132 H Creatine Kinase 107 Troponin T [id number]-Ipthbznwjir Pept Total Protein 7.6 Albumin 4.7 Globulin 2.9 Albumin/Globulin Ratio 1.6 Urine Source Urine Color Urine Turbidity Urine pH Ur Specific [place] Urine Protein Ur Glucose (Stick) Ur Ketones (Stick) Urine Blood Urine Nitrite Urine Bilirubin Urobilinogen Dipstick Urine Leukocytes Urine WBC (Auto) Urine RBC (Auto) U Epithel Cells (Auto) Urine Bacteria (Auto) 06/25/16 06/25/16 06/25/16 01:10 01:10 01:10 WBC RBC Hgb Hct MCV MCH MCHC RDW Std Deviation Plt Count MPV Immature Gran % (Auto) Neut % (Auto) Lymph % (Auto) Grady % (Auto) Eos % (Auto) Baso % (Auto) Immature Gran # (Auto) Neut # (Auto) Lymph # (Auto) Grady # (Auto) Eos # (Auto) Baso # (Auto) PT 65.7 H INR 5.61 PTT (Actin FS) 55.6 H D-Dimer Sodium Potassium Chloride Carbon Dioxide Anion Gap BUN Creatinine Estimated GFR/1.73 m2 BUN/Creatinine Ratio Glucose Calculated Osmolality Calcium Magnesium Total Bilirubin AST ALT Alkaline Phosphatase Creatine Kinase Troponin T < 0.010 [id number]-Kpitpikxzbf Pept 2278 H Total Protein Albumin Globulin Albumin/Globulin Ratio Urine Source Urine Color Urine Turbidity Urine pH Ur Specific [place] Urine Protein Ur Glucose (Stick) Ur Ketones (Stick) Urine Blood Urine Nitrite Urine Bilirubin Urobilinogen Dipstick Urine Leukocytes Urine WBC (Auto) Urine RBC (Auto) U Epithel Cells (Auto) Urine Bacteria (Auto) 06/25/16 03:30 WBC RBC Hgb Hct MCV MCH MCHC RDW Std Deviation Plt Count MPV Immature Gran % (Auto) Neut % (Auto) Lymph % (Auto) Grady % (Auto) Eos % (Auto) Baso % (Auto) Immature Gran # (Auto) Neut # (Auto) Lymph # (Auto) Grady # (Auto) Eos # (Auto) Baso # (Auto) PT INR PTT (Actin FS) D-Dimer Sodium Potassium Chloride Carbon Dioxide Anion Gap BUN Creatinine Estimated GFR/1.73 m2 BUN/Creatinine Ratio Glucose Calculated Osmolality Calcium Magnesium Total Bilirubin AST ALT Alkaline Phosphatase Creatine Kinase Troponin T [id number] Pept Total Protein Albumin Globulin Albumin/Globulin Ratio Urine Source CLEAN CATCH Urine Color STRAW Urine Turbidity CLEAR Urine pH 7.5 Ur Specific [place] 1.001 Urine Protein NEGATIVE Ur Glucose (Stick) NEGATIVE Ur Ketones (Stick) NEGATIVE Urine Blood NEGATIVE Urine Nitrite NEGATIVE Urine Bilirubin NEGATIVE Urobilinogen Dipstick NORMAL Urine Leukocytes NEGATIVE Urine WBC (Auto) <10 Urine RBC (Auto) <10 U Epithel Cells (Auto) <10 Urine Bacteria (Auto) NEGATIVE Orders Category Date Time Status Cardiac Monitoring DIRECTED Care 06/25/16 01:12 Active Saline Loc NOW Care 06/25/16 01:12 Active CHEST-PORTABLE [RAD] Stat Exams 06/25/16 01:12 Taken CBC WITH ELECTRONIC DIFF [HEME] Stat Lab 06/25/16 01:10 Completed CK PROFILE [SP CHEM] Stat Lab 06/25/16 01:10 Completed COMPREHENSIVE METABOLIC PANEL [CHEM] Stat Lab 06/25/16 01:10 Completed D-DIMER [CHEM] Stat Lab 06/25/16 01:10 Completed MAGNESIUM [CHEM] Stat Lab 06/25/16 01:10 Completed PRO B-NATRIURETIC PEPTIDE Stat Lab 06/25/16 01:10 Completed PROTIME WITH INR [COAG] Stat Lab 06/25/16 01:10 Completed PTT [COAG] Stat Lab 06/25/16 01:10 Completed TROPONIN T Stat Lab 06/25/16 01:10 Completed URINALYSIS W/POSS RFLX CULT [URINALYSIS] Stat Lab 06/25/16 03:30 Completed Aspirin Med 06/25/16 01:12 Discontinued 325 mg PO STAT STA Diltiazem 100 mg/Ns [Cardizem 100 mg/Ns] Med 06/25/16 01:17 Active 100 mg in 100 ml IV As Directed Diltiazem [Cardizem] Med 06/25/16 01:17 Discontinued 10 mg IV NOW ONE EKG [EKG] Stat Ther 06/25/16 01:03 Ordered Transfer/Admit Order [TRANSFER] Routine Transfer 06/25/16 04:16 Ordered Result Diagrams: 06/25/16 01:10 06/25/16 01:10 - CONSULTS/PCP/HOSPITALIST Notification #1 *Consult/PCP/Hospitalist*: Dr. Chew (Hospitalist) Time Discussed: 02:48 Consult Disposition: Admit Departure - Departure Time of Disposition Decision: 02:54 DIAGNOSIS: Atrial fibrillation Disposition: ADMITTED INPATIENT 09 Certified Medical Emergency: Emergent Condition: Stable Referrals and Follow-Ups: Katy Osborne MD [Primary Care Provider] - This chart was documented by the indicated scribe, (Anish Dodson, Denise) and accurately reflects the services I performed and decisions made by me, Lincoln Durant MD, as attested by the provider's signature.
--- NOTE | 2016-06-25 05:25 | EKG Report ---
Test Performed on : 06/25/2016 01:07:50 AM Test Reason : palpitations Blood Pressure : / mmHG Vent. Rate : 132 BPM Atrial Rate : 144 BPM P-R Int : 000 ms QRS Dur : 080 ms QT Int : 280 ms P-R-T Axes : 000 056 -13 degrees QTc Int : 414 ms Atrial fibrillation. with rapid ventricular response. ST \T\ T wave abnormality, consider inferior ischemia Abnormal ECG When compared with ECG of 31-MAY-2016 16:12, Atrial fibrillation. has replaced Sinus rhythm. Nonspecific T wave abnormality no longer evident in Anterior leads Unconfirmed Result
[2016-06-25] MEDS ORDERED: TYLENOL PO PRN (06:21)
[2016-06-25] MEDS ORDERED: ZOFRAN IV PRN (06:21)
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
[2016-06-25] MEDS: PROTONIX IV SCH (06:52)
--- NOTE | 2016-06-25 07:29 | Diag Imaging Result Document ---
PROCEDURE NAME: CHEST-PORTABLE - 06/25/2016 AP PORTABLE CHEST AT 0125 HOURS: FINDINGS: The lungs are clear and heart and pulmonary vascularity are within normal limits. There are sternotomy wires. There are no previous studies. IMPRESSION: No evidence of acute disease.
[2016-06-25] MEDS: ICAR-C PLUS PO SCH (08:19)
[2016-06-25] MEDS: LASIX PO SCH (08:19)
[2016-06-25] MEDS: VITAMIN C PO SCH (08:19)
[2016-06-25] MEDS: NEURONTIN PO SCH ×5 (08:19→20:34)
[2016-06-25] MEDS: KLOR-CON PO SCH (08:20)
--- NOTE | 2016-06-25 08:20 | EKG Report ---
Test Performed on : 06/25/2016 08:00:43 AM Test Reason : rhythm change Blood Pressure : / mmHG Vent. Rate : 073 BPM Atrial Rate : 292 BPM P-R Int : 000 ms QRS Dur : 078 ms QT Int : 416 ms P-R-T Axes : 234 045 036 degrees QTc Int : 458 ms Atrial flutter. with 4:[address] \T\ T wave abnormality, consider inferior ischemia Abnormal ECG When compared with ECG of 25-JUN-2016 01:07, (Unconfirmed) Atrial flutter. has replaced Atrial fibrillation. Vent. rate has decreased BY [address] elevation has replaced ST depression in Inferior leads ST no longer depressed in Lateral leads T wave amplitude has increased in Lateral leads Confirmed by Gato CHAPPELL, Ray Obregon ([id number]) on 06/25/2016 6:54:03 PM
--- NOTE | 2016-06-25 09:16 | PROGRESS NOTE ---
DATE: 06/25/2016 SUBJECTIVE: Interval history was reviewed. Patient was admitted last night with palpitations and atrial fibrillation. Started on Cardizem drip. REVIEW OF SYSTEMS: Patient denies of any chest pain, shortness of breath, paroxysmal nocturnal dyspnea, orthopnea, or swelling of feet. Patient was seen in my office last week for urinary tract infection symptoms and was given quinolones. Currently, she denies any dysuria. Patient also schedule for capsule endoscopy today by Dr. Barriga. PAST MEDICAL HISTORY: Reviewed. PAST SURGICAL HISTORY: Reviewed. MEDICINES: Reviewed. PHYSICAL EXAMINATION: Vital Signs: On examination vitals are stable, afebrile. She still in atrial flutter 4:1. Blood pressure is stable. General Appearance: 5 feet, 121 pounds. HEENT: Atraumatic, normocephalic. Pupils equal, reactive to light. Neck: Supple. No lymphadenopathy. Jugular venous distention is normal. Chest: Clear. Cardiovascular: Heart sounds appear to be regular. No murmur. Abdomen: Belly is soft and nontender. Good bowel sounds. Extremities: No peripheral edema, cyanosis, or clubbing. Neurological Examination: No obvious deficits. INVESTIGATIONS: White cell count 6.6, hematocrit 42, platelets 325,000. INR 5.6, and SMA 7 is normal. LFTs were normal. Cardiac enzymes are normal. ProBNP 2000. Urinalysis is clear. Chest x-ray was stable. Electrocardiogram atrial flutter with 4:1 block. ASSESSMENT AND PLAN: 1. New onset of atrial fibrillation, atrial flutter, on IV Cardizem drip. Consult with Dr. Deandre Sherman. 2. Status post prosthetic mitral valve, on Coumadin. INR is high. We will hold the Coumadin. 3. History of urinary tract infection symptoms, improved, currently asymptomatic. 4. Occult gastrointestinal bleeding, on Coumadin. Esophagogastroduodenoscopy and colonoscopy negative. Rescheduled for capsule endoscopy. 5. Reconcile home medications and follow up on the pending labs. cc: Matias Osborne MD
[2016-06-25] MEDS: CARDIZEM PO SCH ×2 (14:12→22:39)
[2016-06-25] MEDS: LOPRESSOR PO SCH ×2 (14:12→20:42)
[2016-06-25] MEDS: METHADONE PO PRN ×2 (16:52→17:19)
--- NOTE | 2016-06-25 18:43 | CONSULTATION ---
DATE OF CONSULTATION: 06/25/2016 CONSULTATION REQUESTED BY: Dr. Osborne. REASON FOR CONSULTATION: Atrial fibrillation. HISTORY: Ms. Dillon is a 65-year-old female who presented to the hospital on June 25 at about 1 a.m. in the morning with complaints of sudden onset of palpitations associated with chest tightness. The patient had not been doing anything unusual. She was just resting when the discomfort started. Upon presentation at 7 a.m., they did an EKG that showed atrial fibrillation with a rapid response. No ischemic changes were noted. The patient was given I believe Cardizem and the heart rate slowed down. At this time she is feeling better. The patient says that she is not having any more discomfort in the chest. She just feels weak and tired. PAST MEDICAL HISTORY: Her past history is positive for mitral valve disease. Back in 1997, she underwent a mitral valve replacement with a mechanical St. Mario valve at [facility]. She had normal coronaries back then. She has had followup echo in 2011 that showed no significant abnormalities. The patient does have a history of peripheral arterial vascular disease. She has had previous supraventricular tachycardia. PAST SURGICAL HISTORY: She has had hysterectomy and cholecystectomy. SOCIAL HISTORY: She is . She has children from a previous marriage. She lives with her ex in an amicable relationship. She smokes half a pack of cigarettes a day. Not a drinker. FAMILY HISTORY: Coronary heart disease in her mother. HOME MEDICATIONS: Her home medications at the time of this admission included the followin. Warfarin 5 mg daily. 2. Zocor 40 mg at bedtime. 3. Potassium chloride 10 mEq daily. 4. Methadone 10 mg 4 times a day. 5. Iron carbonyl daily. 6. Gabapentin 600 four times a day. 7. Furosemide 40 daily. 8. Ascorbic acid 1000 daily. ALLERGIES: 1. Codeine. 2. Oxycodone. 3. Penicillin. 4. Hydromorphone. REVIEW OF SYSTEMS: Review of systems, beyond what I have reported in the HPI, is really noncontributory. The patient is not very active. She does not do a whole lot at home. No angina pectoris. No heart attacks or strokes. No recent syncopal episodes. Last echo done, September of 2014, showed normal findings. PHYSICAL EXAMINATION: Vital signs: Blood pressure is 102/65. Temperature 97.7. Pulse 75. Respirations 18. General: She is awake, alert, in no distress. HEENT: Unremarkable. Chest: Clear to auscultation and percussion. Cardiac: Heart sounds irregularly irregular. No gallop or murmur. Abdomen: Nontender, soft. No masses or hepatomegaly. Extremities: Show decreased pulses. No peripheral edema. Neurologic: She moves four extremities. Cranial nerves are normal. LABORATORY DATA: PT INR is 5.61. D-dimer is 0.10. Sodium 137, potassium 4.1, BUN 9, creatinine 1.0. Troponins have been checked twice. They are negative. Pro BNP is 2278. White count 6320, hemoglobin 14.2. IMPRESSION: 1. Patient presenting with atrial fibrillation and rapid response, symptomatic. 2. Status post mitral valve replacement with St. Mario mechanical valve, on long-term anticoagulation. 3. Tobacco user. RECOMMENDATIONS: The patient was advised to quit smoking. Continue present medical therapy. We are going to put her on Cardizem by mouth and metoprolol by mouth. We will consider pursuing cardioversion if she does not convert spontaneously within the next 48 hours. The patient is fully anticoagulated so she does not require a transesophageal echocardiogram for purposes of cardioversion. Upon discharge, the patient should follow with Dr. Sherman, who is her standard staff electrical engineer. cc: MD Matias Jaimes MD
[2016-06-25] MEDS ORDERED: DIFLUCAN PO ONE (19:30)
[2016-06-25] MEDS: LEVAQUIN 500 MG/D5W 500 MG/100 ML IVPB IV SCH (20:34)
[2016-06-25] MEDS: ZOCOR PO SCH (20:35)
[2016-06-26] MEDS: LOPRESSOR PO SCH ×4 (02:42→21:22)
[2016-06-26] MEDS: CARDIZEM PO SCH ×3 (04:14→21:22)
[2016-06-26 05:39] LABS: MANUAL DIFF NEEDED? NO
[2016-06-26 05:44] LABS: BASO% 0.4 % (0.0-0.8); EOS# 0.05 X1000 (0.0-0.7); EOS% 0.7 % (0.0-10.0); HEMATOCRIT 39.1 % (37.0-47.0); HEMOGLOBIN 12.8 g/dL (12.0-16.0); LYMPH# 1.53 X1000 (1.2-3.4); LYMPH% 22.7 % (20.5-51.1); MCH 29.6 PG (27-31); MCHC 32.7 g/dL (33-37); MCV 90.5 FL (81-99); MONO# 0.49 X1000 (0.11-0.59); MONO% 7.3 % (1.7-9.3); MPV 10.1 FL (7.4-10.4); NEUT% 68.9 % (42.2-75.2); PLT 297 X1000 (130-400); RBC 4.32 XMIL (4.2-5.4)
[2016-06-26 05:59] LABS: INR 4.69; PROTIME 54.6 Seconds (9.2-11.7)
[2016-06-26 06:02] LABS: CALCIUM 9.8 mg/dL (8.8-10.2); MAGNESIUM 2.2 mg/dL (1.5-2.7); POTASSIUM 3.6 mmol/L (3.5-5.1)
--- NOTE | 2016-06-26 06:36 | EKG Report ---
Test Performed on : 06/26/2016 06:21:01 AM Test Reason : atrial flutter Blood Pressure : / mmHG Vent. Rate : 071 BPM Atrial Rate : 284 BPM P-R Int : 000 ms QRS Dur : 082 ms QT Int : 458 ms P-R-T Axes : 265 039 036 degrees QTc Int : 497 ms Atrial flutter. with 4:[address] elevation, consider inferior injury or acute infarct Abnormal ECG When compared with ECG of 25-JUN-2016 08:00, No significant change was found Confirmed by Gato CHAPPELL, Ray Obregon ([id number]) on 06/26/2016 7:28:05 PM
[2016-06-26] MEDS: VITAMIN C PO SCH (08:57)
[2016-06-26] MEDS: LASIX PO SCH (08:57)
[2016-06-26] MEDS: KLOR-CON PO SCH (08:57)
[2016-06-26] MEDS: SODIUM CHLORIDE 0.9% INJ SCH (08:57)
[2016-06-26] MEDS: NEURONTIN PO SCH ×4 (08:57→21:13)
[2016-06-26] MEDS: ICAR-C PLUS PO SCH (08:57)
[2016-06-26] MEDS: PROTONIX IV SCH (08:57)
--- NOTE | 2016-06-26 10:10 | PROGRESS NOTE ---
DATE: 06/26/2016 CHIEF COMPLAINT: Palpitations, shortness of breath, chest tightness. SUBJECTIVE: Ms. Dillon is feeling better today. She is breathing comfortably. Telemetry shows that her atrial flutter is better controlled. OBJECTIVE: Blood pressure is 98/59, temperature 98.8, pulse 71, respirations 14. She is awake, alert and oriented, in no distress. HEENT is unremarkable. Chest: Diminished breath sounds diffusely. Heart sounds are irregularly irregular. No gallop or murmur is noted. She has a systolic click of prosthetic valve. Abdomen is nontender. Extremities showed no edema. Neurologic: She moves all 4 extremities and follows commands. DIAGNOSTIC DATA: Hemoglobin is 12.8, hematocrit 39.1, white count 6730. Sodium is 136, potassium 3.6, BUN is 10, creatinine 1.1. IMPRESSION: 1. The patient presented with irregular heart rate, atrial flutter noted. 2. Status post mitral valve replacement with a mechanical valve, on manager testing anticoagulation. INR is still therapeutic at 4.69. 3. Tobacco user, 2 packs a day. RECOMMENDATIONS: The patient will be kept on metoprolol and diltiazem. We will pursue cardioversion. I explained to her the benefits, risks and complications of that procedure. She is in agreement. We will make arrangements to pursue cardioversion in the morning. PARI does not need to be performed since the patient has been fully anticoagulated. I will request a followup transthoracic echocardiogram at this time if one has not been performed within the past 6 to 12 months. cc: MD Matias Jaimes MD
--- NOTE | 2016-06-26 11:20 | PROGRESS NOTE ---
DATE: 06/26/2016 SUBJECTIVE: Complains of dysuria, recently had a UTI. REVIEW OF SYSTEMS: No chest pain, shortness of breath. No PND. No orthopnea. EXAMINATION: Vital Signs: Are stable. Blood pressure is on the low side. HEENT: Within normal limits. Neck: Supple. No lymphadenopathy. Chest: Clear. Heart: Sounds. Appears to be regular. No murmur. A loud S1. Abdomen: Belly is soft, nontender. Good bowel sounds. Extremities: No peripheral edema, cyanosis, clubbing. INVESTIGATIONS: CBC: White cell count 6.7, hematocrit 39, platelets 297,000. INR 4.6, SMA 7 is normal. ASSESSMENT AND PLAN: 1. Status post mitral prosthetic valve on Coumadin. 2. Occult gastrointestinal bleeding. Postpone the capsule endoscopy. 3. Urinary tract infection. Recently had infection. Levaquin 500 once daily. Follow up on urinalysis is negative. 4. Atrial flutter, non responding with Cardizem drip. Appreciated Dr. Roth's consult. Discussed with the patient and the production support consultant. Patient is going for direct cardioversion in the morning. 5. Chronic pain on methadone. LEVEL OF DOCUMENTATION: 25 minutes. cc: Matias Osborne MD
[2016-06-26] MEDS: LEVAQUIN 500 MG/D5W 500 MG/100 ML IVPB IV SCH (18:31)
[2016-06-26] MEDS: ZOCOR PO SCH (21:12)
--- NOTE | 2016-06-26 22:50 | ECHO REPORT ---
ORDER DATE: 06/26/2016 SUMMARY: 1. Technically difficult study due to limited acoustic window quality. 2. Aortic valve is trileaflet, and opens adequately on 2-dimensional images. Mitral valve has been replaced with mechanical prosthesis, which appears to be well-seated. There is considerable acoustic shadowing, limiting visualization of the mitral valve prosthesis. At a heart rate of 70 beats per minute, the mean gradient across the mitral valve prosthesis is 3 mmHg. Pressure half-time of the mitral valve prosthesis is 40 milliseconds. This resulted in a mitral valve area by pressure half-time method of 5.5 cm2. There is at least mild mitral regurgitation evident, which is not well-defined. Tricuspid valve is without structural abnormality. There is moderate tricuspid regurgitation. Pulmonic valve was not well- demonstrated. Aortic root is grossly normal in size. 3. Normal left ventricular dimensions suggested. Estimated left ventricular ejection fraction appears to be 70%, without wall motion abnormality evident. Left atrium is moderately enlarged. Right atrium is mildly enlarged. Right ventricle is normal in size, with preserved right ventricular systolic function. 4. No pericardial effusion. CONCLUSIONS: 1. Limited study, which is technically difficult. 2. Mechanical mitral valve prosthesis appears to be functioning adequately, but is not well- imaged due to acoustic shadowing. There is at least mild mitral regurgitation. 3. Normal left ventricular ejection fraction, without wall motion abnormality evident. 4. Moderate left atrial enlargement. 5. If clinically indicated, consider transesophageal echocardiography to better evaluate mitral regurgitation and mechanical mitral prosthesis. cc: MD Artur Jackman MD Jagan Reddy, MD
[2016-06-27] MEDS: LOPRESSOR PO SCH ×5 (02:05→20:13)
[2016-06-27] MEDS: VITAMIN C PO SCH ×2 (05:52→08:55)
[2016-06-27] MEDS: NEURONTIN PO SCH ×5 (05:53→20:13)
[2016-06-27] MEDS: KLOR-CON PO SCH ×2 (05:53→08:53)
[2016-06-27] MEDS: ICAR-C PLUS PO SCH ×2 (05:53→08:53)
[2016-06-27] MEDS: LASIX PO SCH ×2 (05:53→08:54)
[2016-06-27] MEDS: PROTONIX IV SCH ×2 (05:53→08:53)
[2016-06-27 05:56] LABS: INR 3.33; PROTIME 37.8 Seconds (9.2-11.7)
[2016-06-27] MEDS: CARDIZEM PO SCH ×3 (07:17→20:13)
[2016-06-27] MEDS ORDERED: NS 1,000 ML ONE (07:30)
[2016-06-27] MEDS ORDERED: CLAVE ANES SET 100 IN 11965 ONE (07:31)
--- NOTE | 2016-06-27 07:32 | EKG Report ---
Test Performed on : 06/27/2016 07:15:17 AM Test Reason : atrial flutter Blood Pressure : / mmHG Vent. Rate : 072 BPM Atrial Rate : 288 BPM P-R Int : 000 ms QRS Dur : 084 ms QT Int : 424 ms P-R-T Axes : 257 022 032 degrees QTc Int : 464 ms Atrial flutter. with 4:1 AV conduction. Abnormal ECG When compared with ECG of 26-JUN-2016 06:21, No significant change was found Confirmed by Gato CHAPPELL, Ray Obregon ([id number]) on 06/27/2016 6:40:11 PM
[2016-06-27] MEDS ORDERED: DIPRIVAN 1% ONE (08:13)
--- NOTE | 2016-06-27 08:18 | CARDIAC CATH REPORT ---
DATE: 06/27/2016 PROCEDURE PERFORMED: Direct current cardioversion procedure. REQUESTING DOCTORS: Dr. Osborne, Dr. Roth. INDICATION: Patient with persistent atrial flutter, history of mitral valve replacement. The patient has been on long-term anticoagulation. INR has been therapeutic for the past 20 days. Cardioversion was recommended. DESCRIPTION: The patient came into the cardiac biological lab technician in the fasting state. The pads were positioned in anterior-posterior location. The patient received intravenous propofol under the anesthesia services, Dr. Boggs et al. Once the patient was adequately anesthetized, she received a single synchronized countershock to the chest cage consisting of 75 reyes per second. She converted into sinus rhythm from atrial flutter. She woke up gradually from the effects of the anesthetic without any obvious deficits. SUMMARY: In summary, this was a successful cardioversion from atrial flutter into sinus rhythm. RECOMMENDATION: The patient is to continue present medical therapy as outlined in the medication administration record. She will follow up with Dr. Osborne for her usual care and with Dr. Sherman who is her established spinner iron. cc: MD Matias Jaimes MD
[2016-06-27] MEDS ORDERED: NON-FORMULARY BULK MED TOP PRN (08:49)
[2016-06-27] MEDS ORDERED: XYLOCAINE-MPF 2% ONE (09:07)
--- NOTE | 2016-06-27 09:16 | PROGRESS NOTE ---
DATE: 06/27/2016 SUBJECTIVE: Patient just returned from direct cardioversion with 75 joules for underlying atrial flutter and fibrillation. Apparently, her heart rate is low, blood pressure is low. The patient is asymptomatic. Dr. Roth performed the procedure. PHYSICAL EXAMINATION: Vital Signs: Vitals are now stable. HEENT: Examination within normal limits. Chest: Clear. Heart: Heart sounds are regular. Loud S1. Abdomen: Belly is soft, nontender. Good bowel sounds. Extremities: No peripheral edema,cyanosis, or clubbing. INVESTIGATIONS: INR 3.3. ASSESSMENT AND PLAN: 1. Atrial flutter, atrial fibrillation, status post direct cardioversion with 75 joules. Continue to monitor for the next 24 hours. The patient will be on beta blockers. 2. Mitral valve prosthesis, on Coumadin. INR 3.3. 3. Occult gastrointestinal bleeding, stable. Continue present medical therapy. If stable, will be discharged in the morning. 4. Urinary tract infection, resolving. Once again, thanks Dr. Roth. Level of documentation is 25 minutes. cc: Matias Osborne MD
[2016-06-27] MEDS ORDERED: CARMEX LIP BALM TOP PRN (15:59)
[2016-06-27] MEDS: LEVAQUIN 500 MG/D5W 500 MG/100 ML IVPB IV SCH (18:58)
[2016-06-27] MEDS: ZOCOR PO SCH (20:13)
[2016-06-28] MEDS: LOPRESSOR PO SCH ×2 (02:42→08:41)
[2016-06-28] MEDS: CARDIZEM PO SCH (05:41)
--- NOTE | 2016-06-28 06:53 | EKG Report ---
Test Performed on : 06/28/2016 06:34:42 AM Test Reason : atrial flutter Blood Pressure : / mmHG Vent. Rate : 063 BPM Atrial Rate : 063 BPM P-R Int : 216 ms QRS Dur : 088 ms QT Int : 434 ms P-R-T Axes : 070 041 031 degrees QTc Int : 444 ms Sinus rhythm. with 1st degree AV block. Otherwise normal ECG When compared with ECG of 27-JUN-2016 07:15, Sinus rhythm. has replaced Atrial flutter. ST no longer elevated in Inferior leads Confirmed by Gato CHAPPELL, Ray Obregon ([id number]) on 06/28/2016 8:40:34 AM
[2016-06-28 07:33] VITALS: BP 99/55
[2016-06-28] MEDS: VITAMIN C PO SCH (08:40)
[2016-06-28] MEDS: NEURONTIN PO SCH (08:41)
[2016-06-28] MEDS: KLOR-CON PO SCH (08:41)
[2016-06-28] MEDS: LASIX PO SCH (08:41)
[2016-06-28] MEDS: PROTONIX IV SCH (08:41)
[2016-06-28] MEDS: ICAR-C PLUS PO SCH (08:41)
[2016-06-28] MEDS: SODIUM CHLORIDE 0.9% INJ SCH (08:41)
--- NOTE | 2016-06-28 21:47 | DISCHARGE SUMMARY ---
ADMISSION DATE: 06/25/2016 DISCHARGE DATE: 06/28/2016 DISCHARGE DIAGNOSIS: New onset of atrial fibrillation and atrial flutter with underlying mitral prosthetic valve. SECONDARY DIAGNOSES: 1. Occult GI bleeding. 2. Urinary tract infection. 3. Osteoporosis. 4. Chronic back pain on methadone. 5. Hyperlipidemia. CONSULTATION: Artur Roth MD. PROCEDURES: Direct cardioversion with 75 joules. BRIEF HISTORY: Please see the H and P that was done by hospitalist on 2016. In brief, she is a 65-year-old white female recently admitted to the hospital for rectal GI bleeding, waiting for capsule endoscopy by Dr. Barriga. She came in with a palpitations. She was found to have new onset atrial fibrillation. The patient is already on Coumadin. Patient was started on IV Cardizem drip and digoxin for rate control. She is in persistent atrial flutter. INR was 3.3. Dr. Roth did a direct cardioversion. Subsequently she remained in normal sinus. During this hospital course laboratories are as follows: CBC: White cell count 6.7, hematocrit 39, platelets 297,000, PT 37, INR 3.3, SMA 7, sodium 136, potassium 3.6, chloride 97, BUN 10, creatinine 1.1 and liver function tests were normal. Cardiac enzymes were normal. ProBNP 2000. Urinalysis is clear. Echocardiography report was a limited study. Mechanical mitral valve functioning very well. Normal LV systolic function. Moderate left atrial enlargement. No visual blood clot present. Chest x-ray with no evidence of acute disease. At the time of discharge, patient was stable. I had a discussion with the family as well as Dr. Roth. DISCHARGE INSTRUCTIONS: 1. Initiate standing vaccination protocol. 2. Lasix 40 mg daily. 3. Simvastatin 40 daily. 4. Methadone 10 mg 4 times daily. 5. Neurontin 600, 4 times daily. 6. Vitamin C 1000 mg daily. 7. Potassium 10 mEq daily. 8. Warfarin 5 mg daily. 9. Icar-C Plus 1 tablet daily. 10. Cardizem 120 daily. 11. Follow up with Dr. Sherman for maintenance anticoagulation. 12. Follow up in my office next week. 13. Follow up with Dr. Barriga to reschedule for capsule endoscopy. cc: Matias Osborne, MD MD Artur Grossman MD Thomas P. Short, MD MTDD
== END 2016-06-28 10:40 | disposition home or self-care (01) ==
LOC: ED 00:59 → SUATTDRO 04:45 → 3S 04:45
PROVIDERS: ADMIT Internal Medicine; ATTEND Internal Medicine

== ENCOUNTER 2018-07-15 11:58 | Inpatient (IN) ==
[2018-07-15 12:43] LABS: URINE SOURCE CLEAN CATCH
[2018-07-15 12:48] LABS: BILIRUBIN URINE NEGATIVE (NEGATIVE); BLOOD URINE SMALL (NEGATIVE); COLOR YELLOW; GLUCOSE URINE NEGATIVE (NEGATIVE); KETONE URINE TRACE mg/dL (NEGATIVE); LEUKOCYTES URINE NEGATIVE (NEGATIVE); NITRITE URINE NEGATIVE (NEGATIVE); PH URINE 5.5; PROTEIN URINE NEGATIVE (NEGATIVE); SP GRAVITY URINE 1.016; TURBIDITY URINE CLEAR (CLEAR); UROBILINOGEN URINE NORMAL (NORMAL)
[2018-07-15 12:49] LABS: UR EPITHELIAL CELLS <10 /HPF (<10); URINE BACTERIA NEGATIVE /HPF; URINE RBC <10 /HPF (<10); URINE WBC <10 /HPF (<10)
[2018-07-15 13:00] LABS: UR AMPHETAMINES QUAL NONE DETECTED (NONE DETECT); UR BARBITUATES QUAL NONE DETECTED (NONE DETECT); UR BENZODIAZEPIN QUAL NONE DETECTED (NONE DETECT); UR CANNABINOIDS QUAL NONE DETECTED (NONE DETECT); UR COCAINE QUAL NONE DETECTED (NONE DETECT); UR METHADONE QUAL PRESUMPTIVE POSITIVE (NONE DETECT); UR OPIATES QUAL NONE DETECTED (NONE DETECT); UR OXYCODONE QUAL NONE DETECTED (NONE DETECT); UR PCP QUAL NONE DETECTED (NONE DETECT)
[2018-07-15 13:21] LABS: INR 3.9
[2018-07-15 13:22] LABS: PTT 45.2 Seconds (22.3-41.8)
--- NOTE | 2018-07-15 13:24 | Diag Imaging Result Doc PS360 ---
EXAM: CT HEAD W/O CONTRAST HISTORY: ams TECHNIQUE: CT head without contrast COMPARISON: None. FINDINGS: No parenchymal hemorrhage. No epidural or subdural hematoma. No subarachnoid hemorrhage. Mild atrophy. No mass identified on this noncontrasted exam. No hydrocephalus. No sinus opacification. IMPRESSION: 1.No hemorrhage. 2.Mild atrophy. This exam was performed using automated exposure control, adjustment of mA or kV according to patient size, and/or use of iterative reconstruction technique. Electronically signed by Arthur Abad 07/15/2018 1:22 PM
[2018-07-15 13:29] LABS: PROTIME 40.8 Seconds (11.0-16.0)
[2018-07-15 13:30] LABS: BASO# 0.02 X1000 (0.0-0.2); BASO% 0.3 % (0.0-0.8); HEMATOCRIT 31.1 % (37.0-47.0); HEMOGLOBIN 10.5 g/dL (12.0-16.0); LYMPH# 0.56 X1000 (1.2-3.4); LYMPH% 7.8 % (20.5-51.1); MCHC 33.8 g/dL (33-37); MCV 91.7 FL (81-99); MONO% 2.8 % (1.7-9.3); MPV 10.2 FL (7.4-10.4); NEUT# 6.39 X1000 (1.4-6.5); NEUT% 89.1 % (42.2-75.2); PLT 265 X1000 (130-400); RBC 3.39 XMIL (4.2-5.4); RDW 12.6 % (11.5-14.5); WBC 7.17 X1000 (4.8-10.8)
--- NOTE | 2018-07-15 13:35 | Diag Imaging Result Doc PS360 ---
EXAM: CHEST-2 VIEWS HISTORY: ams TECHNIQUE: Chest two views COMPARISON: 06/25/2016 FINDINGS: The lungs are hyperexpanded. The heart is not enlarged. Sternal wires are present. The vessels are small. There are no infiltrates. No pleural effusions. IMPRESSION: Emphysema Electronically signed by Arthur Abad 07/15/2018 1:33 PM
[2018-07-15 13:50] LABS: CALCIUM 9.1 mg/dL (8.8-10.2); TOTAL BILIRUBIN 0.19 mg/dL (0.20-1.00)
[2018-07-15] MEDS ORDERED: NS 1,000 ML IV ONE (13:55)
[2018-07-15 14:16] LABS: POTASSIUM 3.7 mmol/L (3.5-5.1)
[2018-07-15] MEDS ORDERED: ZOFRAN IV PRN (16:32)
[2018-07-15] MEDS ORDERED: NS 1,000 ML IV SCH ×2 (16:45)
[2018-07-15 18:37] LABS: HEMATOCRIT 24.3 % (37.0-47.0)
[2018-07-15] MEDS ORDERED: DITROPAN XL PO ONE (20:52)
[2018-07-15] MEDS: PROTONIX IV SCH (21:10)
[2018-07-15] MEDS: SODIUM CHLORIDE 0.9% INJ SCH (21:10)
[2018-07-15] MEDS: NS 1,000 ML IV SCH (21:11)
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
[2018-07-15 21:20] LABS: URINE SOURCE CATH
[2018-07-15 21:23] LABS: BILIRUBIN URINE NEGATIVE (NEGATIVE); BLOOD URINE LARGE (NEGATIVE); COLOR YELLOW; GLUCOSE URINE NEGATIVE (NEGATIVE); KETONE URINE 10 mg/dL (NEGATIVE); LEUKOCYTES URINE SMALL (NEGATIVE); NITRITE URINE NEGATIVE (NEGATIVE); PH URINE 5.5; PROTEIN URINE TRACE mg/dL (NEGATIVE); SP GRAVITY URINE 1.014; TURBIDITY URINE CLEAR (CLEAR); UROBILINOGEN URINE NORMAL (NORMAL)
[2018-07-15 21:25] LABS: UR EPITHELIAL CELLS >10 /HPF (<10); URINE BACTERIA NEGATIVE /HPF; URINE WBC <10 /HPF (<10)
[2018-07-15 22:32] LABS: HEMOGLOBIN 7.2 g/dL (12.0-16.0)
[2018-07-15] MEDS ORDERED: GOLYTELY PO ONE (23:02)
[2018-07-16 05:51] LABS: HEMATOCRIT 25.3 % (37.0-47.0); HEMOGLOBIN 8.4 g/dL (12.0-16.0); MCH 31.2 PG (27-31); MCHC 33.2 g/dL (33-37); MCV 94.1 FL (81-99); MPV 10.2 FL (7.4-10.4); RBC 2.69 XMIL (4.2-5.4); RDW 13.1 % (11.5-14.5); WBC 7.47 X1000 (4.8-10.8)
[2018-07-16 06:06] LABS: INR 2.25; PROTIME 26.6 Seconds (11.0-16.0)
[2018-07-16 06:12] LABS: AGAP 12; BUN 30 mg/dL (8-22); CALCIUM 8.3 mg/dL (8.8-10.2); CHLORIDE 114 mmol/L (98-107); COSMO 303; CREATININE 0.7 mg/dL (0.5-0.9); ESTIMATED GFR > 60; GLUCOSE 117 mg/dL (70-104); POTASSIUM 3.3 mmol/L (3.5-5.1); SODIUM 149 mmol/L (136-145); TCO2 23 mmol/L (25-35)
[2018-07-16] MEDS: PROTONIX IV SCH ×2 (06:40→20:43)
[2018-07-16] MEDS: SODIUM CHLORIDE 0.9% INJ SCH ×2 (06:40→20:43)
--- NOTE | 2018-07-16 06:56 | PROGRESS NOTE ---
DATE: 07/16/2018 SUBJECTIVE: This patient is still bleeding. As per report, she had multiple bowel movements with red bright blood coming out from the rectal area, also dark stools, moderate to big amount. She received 1 FFP and 2 units of blood. There were also 2 units still ready, but we are holding it just in case she needs more blood. She seems to be a little bit more stable this morning. She is alert. She is oriented x2. She is not oriented to time. She is following commands and answering some of my questions. OBJECTIVE: Vital Signs: Temperature 97.8 degrees, pulse 92, respiratory rate 21, blood pressure 91/57 and oxygen saturation 100% on 2 L of nasal cannula. HEENT: Head normocephalic. No trauma. PERRLA. Neck: Supple. No JVD. No masses. Central trachea. Chest: Clear to auscultation. No wheezing. No rales. Cardiovascular: RRR. She has a click from the mechanical valve. Extremities: No edema. No clubbing. No cyanosis. Abdomen: Soft. There is some discomfort to palpation at the level of the epigastric area. Neurological: The patient is alert and oriented x2. She is not oriented to time. She is able to say her date of and follow commands. LABORATORY: WBC 7.4, hemoglobin 8.4, hematocrit 25.3, and platelet 143,000. PT 26.6, INR 2.2. Sodium 149, potassium 3.3, chloride 114, bicarbonate 23, BUN 30, creatinine 0.7, glucose 117, and calcium 8.3. ASSESSMENT AND PLAN: 1. GI bleed. I believe this is probably upper GI bleed since she has been having black stools, but now she is having some bright red blood coming out from the rectal area, that probably also is related to an upper GI bleed. Gastroenterology Department on board. They know already about the patient. This patient received 2 units of blood and also received 1 FFP because she had been on warfarin before. The INR was supratherapeutic at 3.9, today is 2.2. She has been ordered vitamin K IV. We will continue with the IV fluids, and we will continue with the Protonix twice a day. Likely, this patient will be scoped this morning. We will wait for the results. 2. History of atrial fibrillation. Continue with telemetry. We will continue with her home medications. Her heart rate is controlled. We will continue with the same management. 3. History of mitral valve replacement, aware. This patient is on chronic anticoagulation secondary to this mechanical valve. The INR at this moment is 2.2, but she came in with INR of 3.9. Since she has been bleeding. She received a unit of FFP. Also, she will get vitamin K. Likely, after the procedure, this patient will be on heparin drip. We will hold the warfarin for now. 4. Altered mental status. This could be multifactorial, and could be related to medications. She has been on methadone. Also, probably she can have some dementia. Apparently, as per the daughter, she has been complaining of dysuria, but everything has been negative. The urine culture and the urinalysis showed some blood, but negative bacteria x2. We will monitor for now. 5. Mild acute kidney injury, seems to be getting better. Creatinine at baseline. We will continue with the IV fluids. 6. Hypernatremia. This patient recently had 2 blood transfusions. I will repeat all the lab work today in the afternoon around 1:00 or 2:00 in the afternoon to see how she does, and I will change the fluids if I have to. 7. Hypokalemia. Potassium level is slightly low at 3.3. For now, we will monitor. I will repeat the lab work in the afternoon like I said. 8. Anemia, likely due to acute blood loss. We will continue to monitor. She is status post 2 PRBC's. We do have 2 more units ready in case of more problems with the hemoglobin. 9. Borderline low blood pressure. Mostly, the systolic blood pressure has been in the 100s and 90s. She seems to be hydrated at this moment. We will continue with the IV fluids. 10. Overall, this patient seems to be to be a little bit stable compared with yesterday night, but she is still bleeding. She is status post 2 PRBC's and 1 FFP. The INR decreased from 3.9 to 2.2. She will receive vitamin K as directed by Gastroenterology Department. Hopefully, she will have an endoscopy done early this morning. CRITICAL CARE TIME: 35 minutes. cc: MD LI De Dios
[2018-07-16] MEDS ORDERED: POTASSIUM CHLORIDE 20 MEQ/SWI 20 MEQ/100 ML IVPB IV SCH (08:00)
[2018-07-16 08:46] LABS: HEMATOCRIT 25.1 % (37.0-47.0); HEMOGLOBIN 8.3 g/dL (12.0-16.0)
[2018-07-16] MEDS ORDERED: DIPRIVAN 1% ONE ×2 (08:50→09:15)
[2018-07-16 09:00] LABS: INR 2.52
[2018-07-16] MEDS ORDERED: VITAMIN K 10 MG in NS 50 ML IV SCH (09:00)
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
[2018-07-16] MEDS ORDERED: XYLOCAINE-MPF 2% ONE (09:36)
[2018-07-16] MEDS: NS 1,000 ML IV SCH (11:35)
[2018-07-16] MEDS: METHADONE PO SCH ×3 (14:16→20:43)
[2018-07-16 16:52] LABS: HEMATOCRIT 29.9 % (37.0-47.0); HEMOGLOBIN 10.1 g/dL (12.0-16.0)
[2018-07-16 17:20] LABS: AGAP 10; BUN 20 mg/dL (8-22); CALCIUM 8.3 mg/dL (8.8-10.2); CHLORIDE 114 mmol/L (98-107); COSMO 296; CREATININE 0.6 mg/dL (0.5-0.9); ESTIMATED GFR > 60; GLUCOSE 110 mg/dL (70-104); POTASSIUM 3.4 mmol/L (3.5-5.1); SODIUM 147 mmol/L (136-145); TCO2 23 mmol/L (25-35)
--- NOTE | 2018-07-16 19:21 | PROGRESS NOTE ---
DATE: 07/16/2018 A 68-year-old white female is well known to me, who came in with lower GI bleed, hematochezia. The patient was seen this morning with profuse bleeding noted. Hemodynamics were stable. PAST MEDICAL HISTORY: Reviewed. PAST SURGICAL HISTORY: Reviewed. MEDICATIONS: Reviewed. ALLERGIES: Codeine, oxycodone, penicillin, hydromorphone. EXAMINATION: Hemodynamics are stable, confused.Chest: Clear. Heart: Sounds are regular. S1 is loud. Abdomen: Belly is soft, nontender. Profuse bleeding per rectum noted. No obvious deficits. INVESTIGATIONS: CBC: White cell count 7.4, hematocrit 22, platelets 265,000. INR is 3.9. SMA- 7: Potassium 3.4, BUN 20, creatinine 0.6. Urine tox screen positive for methadone. ASSESSMENT AND PLAN: 1. GI bleeding. The patient is scheduled for EGD and colonoscopy by Dr. Hayes. 2. Stat PT/INR. Vitamin K was given, status post prosthetic mitral valve. INR is 2.5. 3. Chronic pain on methadone. 4. Status post prosthetic mitral valve, stable. 5. Hyperlipidemia, on simvastatin. 6. Based on the colonoscopy and EGD, further recommendations follow. Continue IV Protonix and apparently the patient recently seen by Dr. Spann for annual exam. 7. History of paroxysmal atrial fibrillation, status post direct cardioversion with [address] Roth on 06/28/2016. 8. Will follow up. LEVEL OF DOCUMENTATION: 35 minutes. cc: Matias Osborne MD MTDD
[2018-07-16 23:55] LABS: HEMATOCRIT 26.2 % (37.0-47.0); HEMOGLOBIN 8.8 g/dL (12.0-16.0)
[2018-07-17] MEDS: NS 1,000 ML IV SCH (01:18)
[2018-07-17 05:26] LABS: BASO# 0.01 X1000 (0.0-0.2); BASO% 0.2 % (0.0-0.8); HEMOGLOBIN 8.7 g/dL (12.0-16.0); LYMPH# 0.95 X1000 (1.2-3.4); LYMPH% 16.8 % (20.5-51.1); MCH 30.4 PG (27-31); MCHC 33.5 g/dL (33-37); MCV 90.9 FL (81-99); MONO# 0.55 X1000 (0.11-0.59); MONO% 9.8 % (1.7-9.3); MPV 10.3 FL (7.4-10.4); NEUT# 4.13 X1000 (1.4-6.5); NEUT% 73.2 % (42.2-75.2); PLT 128 X1000 (130-400); RBC 2.86 XMIL (4.2-5.4); RDW 14.5 % (11.5-14.5); WBC 5.64 X1000 (4.8-10.8)
[2018-07-17 05:34] LABS: INR 1.12; PROTIME 15.3 Seconds (11.0-16.0)
[2018-07-17 05:46] LABS: AGAP 9; BUN 17 mg/dL (8-22); CHLORIDE 115 mmol/L (98-107); COSMO 292; CREATININE 0.8 mg/dL (0.5-0.9); ESTIMATED GFR > 60; GLUCOSE 104 mg/dL (70-104); POTASSIUM 3.4 mmol/L (3.5-5.1); SODIUM 146 mmol/L (136-145); TCO2 22 mmol/L (25-35)
[2018-07-17] MEDS ORDERED: INJECTAFER IV ONE (07:38)
[2018-07-17] MEDS ORDERED: KLOR-CON PO ONE (07:39)
[2018-07-17] MEDS: ICAR-C PLUS PO SCH (08:40)
[2018-07-17] MEDS: PROTONIX IV SCH ×2 (08:40→19:56)
[2018-07-17] MEDS: METHADONE PO SCH ×3 (08:40→22:14)
--- NOTE | 2018-07-17 08:48 | PROVIDER DOCUMENTATION ---
This chart was entered by Kaia Jordan Scribe, acting as scribe for Navneet Joseph MD. HPI-General Adult - General Chief Complaint: Rectal Bleeding Stated Complaint: AMS/RECTAL BLEEDING Time Seen by Provider: 07/15/18 12:18 Source: patient, EMS Allergies/Adverse Reactions: Patient Allergies Allergy/AdvReac Type Severity Reaction Status Date / Time codeine Allergy Mild HIVES Verified 07/15/18 12:36 oxycodone HCl * Allergy Mild HIVES Verified 07/15/18 12:36 [From Percocet] Penicillins Allergy Mild HIVES Verified 07/15/18 12:36 hydromorphone HCl * Allergy Unknown Verified 07/15/18 12:36 [From Dilaudid] Home Medications: Home Medication List Medication Instructions Recorded Confirmed Last Taken Type Furosemide [Lasix] 40 mg PO DAILY 01/22/13 07/15/18 06/24/16 History Gabapentin [Neurontin] 600 mg PO TID 01/22/13 07/15/18 06/24/16 History Methadone 10 mg PO TID 01/22/13 07/15/18 06/24/16 History SIMVAstatin [Zocor] 40 mg PO QHS 01/22/13 07/15/18 06/24/16 History Ascorbic Acid [Vitamin C] 1,000 mg PO DAILY #0 tablet 01/25/13 07/15/18 06/24/16 Rx Potassium Chloride 10 meq PO DAILY 10/20/13 07/15/18 06/24/16 History Warfarin [Coumadin] 5 mg PO DAILY 10/20/13 07/15/18 06/24/16 History Iron Carbonyl/Vit C/Vit B12/FA 1 each PO DAILY #30 tablet 06/05/16 07/15/18 06/24/16 Rx [Icar-C Plus] Diltiazem HCl [Cardizem] 120 mg PO DAILY #30 tablet 06/28/16 07/15/18 Unknown Rx Clonazepam 1 tab PO PRN PRN 07/15/18 07/15/18 07/09/18 History Nitroglycerin Sl [Nitroglycerin] 1 tab SUBLINGUAL PRN PRN 07/15/18 07/15/18 Unknown History - History of Present Illness -Gen Adult Nature of Presenting Problems: 68 yowf presents to the ed via ems with multiple complaints. pt is anxious and mildly confused on exam and sts she has dark stool, dysuria. pt has hx of abuse of pain medications and has chronic pain. daughter told ems she feels like her mother took to many pain medication because this am she was at baseline and in no distress Location of Pain/Injury: reports: abdomen (dysuria), back (chronic) Quality of Pain: reports: burning Severity: reports: moderate Onset/Duration: reports: just prior to arrival Timing: reports: still present Context/Activities at Onset: reports: light activity Modifying Factors: improves with: nothing Associated Symptoms: reports: anxiety, back/neck pain, genitourinary problems. denies: dizziness, fever/chills, nausea, shortness of breath, vomiting, weakness Similar Symptoms Previously?: Yes (per daughter same sx with abuse of pain medications) Recently seen or treated by another doctor?: No Review of Systems - Adult - REVIEW OF SYSTEMS - ADULT ROS:: limited per condition Constitutional: denies: chills, fever, fatique Eyes: reports: no symptoms reported Ears, Nose, Mouth & Throat: reports: no symptoms reported Cardiovascular: denies: chest pain, palpitations Respiratory: denies: cough, shortness of breath, wheezing Gastrointestinal: reports: see HPI, abdominal pain, rectal bleeding. denies: diarrhea, nausea, vomiting Genitourinary: reports: see HPI, dysuria, frequent UTI's Musculoskeletal: reports: see HPI, back pain (chronic), muscle aches Integumentary: reports: no symptoms reported Neurological: reports: see HPI. denies: dizziness/vertigo, headache/migraines Psychiatric: reports: see HPI, anxiety Endocrine: reports: no symptoms reported Hematologic/Lymphatic: reports: no symptoms reported Allergic/Immunologic: reports: no symptoms reported All Other Systems: Reviewed and Negative Past History - Adult - PAST MEDICAL HISTORY-ADULT Review of Records: reports: Nursing Assessment Review, Medications Reviewed Major Childhood Illnesses: reports: denies history Cardiovascular: reports: HTN, heart valve problem (Mitral Valve replaced) Respiratory: reports: denies history Gastrointestinal: reports: denies history Obstetrical/Gynecological: reports: denies history Genitourinary: reports: denies history Musculoskeletal: reports: chronic pain Neurological: reports: Seizures/Epilepsy Endocrine/Immune: reports: denies history Other Conditions: reports: denies history - PRIOR SURGERIES/PROCEDURES Surgical/Procedure History: reports: cholecystectomy, hysterectomy, other (mitral valve replacement) - IMMUNIZATION STATUS Childhood Immunizations: See Nurse Assessment Flu Vaccine: See Nurse Assessment - FAMILY HISTORY Family History: reviewed, not pertinent - SOCIAL HISTORY Smoking: cigarettes, greater than 1 pack/day Provider spent 3-5 mins advising pt. on dangers of tobacco.: Discussed manners to quit use, and f/u contacts for add'l counseling. Substance Use: alcohol Alcohol Use Frequency: every day Number of drinks per typical drinking period:: 1 drink Living Situation: family Physical Exam-General - PHYSICAL EXAM-ADULT Initial Vital Signs Reviewed: Yes - CONSTITUTIONAL General Appearance: alert, thin, anxious - EYES Eyes: PERRL/EOMI, pink conjunctivae - HEAD, EARS, NOSE, MOUTH & THROAT HENMT: moist mucous membranes, normal ENT inspection - NECK Neck: non-tender, full range of motion, supple, normal inspection - RESPIRATORY Respiratory: chest non-tender, lungs clear, normal breath sounds - CARDIOVASCULAR Cardiovascular: normal peripheral pulses, tachycardia (104) - CHEST (BREASTS) Chest/Breast: deferred - GASTROINTESTINAL (ABDOMEN) Abdominal Exam: normal bowel sounds, soft, no organomegaly, no pulsatile mass, tenderness. negative: distended - GENITOURINARY Female Genitalia/Pelvic Exam: deferred Rectal Exam: normal rectal tone, black stool Hemoccult Exam: heme positive stool - LYMPHATIC Lymphatic: no adenopathy - MUSCULOSKELETAL Back Exam: normal inspection, no CVA tenderness, no vertebral tenderness, other (chronic back pain) Extremity: normal range of motion, non-tender, no pedal edema, no calf tenderness, normal capillary refill, pelvis stable - SKIN Integumentary: normal color, normal turgor, warm/dry - NEUROLOGIC Neurologic: grossly normal, no motor/sensory deficits - PSYCHIATRIC Psych/Mental Status: anxious, tearful Progress - PLAN OF CARE/RESULTS Progress/Plan/Lab Results: Vital Signs - 8 hr 07/15/18 12:03 Temperature 99.5 F Pulse Rate 104 H Respiratory Rate 18 Blood Pressure 114/70 O2 Sat by Pulse Oximetry 98 Orders Category Date Time Status ED: Orthostatic Vital Signs (E as directed Care 07/15/18 12:31 Active CHEST-2 VIEWS [RAD] Stat Exams 07/15/18 12:[address] HEAD W/O CONTRAST [CT] Stat Exams 07/15/18 12:30 Ordered CBC WITH ELECTRONIC DIFF [HEME] Stat Lab 07/15/18 12:30 Uncollected CK PROFILE [SP CHEM] Stat Lab 07/15/18 12:30 Uncollected COMPREHENSIVE METABOLIC PANEL [CHEM] Stat Lab 07/15/18 12:31 Uncollected D-DIMER [COAG] Stat Lab 07/15/18 12:30 Ordered LACTATE, PLASMA [CHEM] Stat Lab 07/15/18 12:30 Uncollected OCCULT BLOOD SCREENING [STOOL] Stat Lab 07/15/18 12:32 Uncollected PROTIME WITH INR [COAG] Stat Lab 07/15/18 12:30 Uncollected PTT [COAG] Stat Lab 07/15/18 12:30 Uncollected TROPONIN T Stat Lab 07/15/18 12:30 Uncollected URINALYSIS W/POSS RFLX CULT [URINALYSIS] Stat Lab 07/15/18 12:35 Ordered URINE DRUG SCREEN Stat Lab 07/15/18 12:35 Ordered Result Diagrams: 07/17/18 05:05 07/17/18 05:05 - REASSESSMENT Reassessment #1 Time Reassessed: 13:28 Status: unchanged - CT/MRI 1 CT Study: Head Impression: See EMR Report (EXAM: CT HEAD W/O CONTRAST HISTORY: ams TECHNIQUE: CT head without contrast COMPARISON: None. FINDINGS: No parenchymal hemorrhage. No epidural or subdural hematoma. No subarachnoid hemorrhage. Mild atrophy. No mass identified on this noncontrasted exam. No hydrocephalus. No sinus opacification. IMPRESSION: 1.No hemorrhage. 2.Mild atrophy. This exam was performed using automated exposure control, adjustment of mA or kV according to patient size, and/or use of iterative reconstruction technique. Electronically signed by Arthur Abad 07/15/2018 1:22 PM 07/15/18 1322 Interpreting Physician: Arthur Abad MD Dictated Date/Time: 07/15/18 1321 cc: Navneet Joseph MD; Dae Spann MD) Departure - Departure Date of Disposition Decision: 07/15/18 Time of Disposition Decision: 17:30 DIAGNOSIS: GI bleed Qualifiers: GI bleed type/associated pathology: unspecified gastrointestinal hemorrhage type Qualified Code(s): K92.2 - Gastrointestinal hemorrhage, unspecified Disposition: ADMITTED INPATIENT 09 Certified Medical Emergency: Emergent Condition: Serious - Critical Care Note This patient required my direct & personal management of CC.: Yes Total Time (mins): 37 Critical Care Statement: This patient required my direct personal management to treat or rule out processes, the absence of which, could potentiallly result in sudden, clinically significant life or limb threatening deterioration. Attestation - Physician/ KALEIGH Attestation Patient care was provided by Advanced Practice Provider:: No The physician spent face to face time with patient:: Yes Advanced Practice Provider documentation review:: Supervising physician onsite and consulted in the evaluation and care of this patient. The physician did have a face to face encounter with the patient. This chart was documented by the indicated scribe, (Kaia Jordan Scribe) and accurately reflects the services I performed and decisions made by me, Navneet Joseph MD, as attested by the provider's signature.
[2018-07-17] MEDS ORDERED: INJECTAFER 750 MG in NS 250 ML IV ONE (09:00)
--- NOTE | 2018-07-17 09:37 | PROGRESS NOTE ---
DATE: 07/17/2018 SUBJECTIVE: Interval history was reviewed. So far, the patient did receive 3 units of packed RBCs. Vitamin K was given. INR was subtherapeutic. Hemodynamics are stable. Mental status is improving. PHYSICAL EXAMINATION: Temperature is 98 degrees, pulse is 64, blood pressure is 100/50, 98 pounds. HEENT Examination: Within normal limits. Chest: Clear. Heart: Heart sounds are regular. S1 is loud. Abdomen: Belly is soft, nontender. Maya was placed. INVESTIGATIONS: CBC: White cell count 5.6, hematocrit 26, platelets 128,000. PT, INR are normal. SMA 7: Sodium 146, potassium 3.4. ASSESSMENT AND PLAN: 1. Upper gastrointestinal bleeding due to pyloric ulcer, status post clipping. We will watch for any symptoms and signs of gastrointestinal bleeding. 2. We will give her one bag of iron infusion. 3. We will restart on Coumadin at bedtime. Continue on intravenous Protonix. 4. Hypokalemia. Replace the potassium. 5. Check the orthostatic blood pressure and monitoring daily CBC, SMA 7, and PT and INR. Appreciated gastroenterology consult. LEVEL OF DOCUMENTATION: 25 minutes. cc: Matias Osborne MD
[2018-07-17] MEDS: CARAFATE LIQUID PO SCH ×2 (14:13→19:55)
--- NOTE | 2018-07-17 15:05 | GASTROENTEROLOGY PROGRESS NOTE ---
DATE: 07/17/2018 SUBJECTIVE: Patient resting in bed. She is feeling better. She denies any nausea or vomiting. She denies any abdominal pain. She had 4 bowel movements yesterday, no bowel movement this morning. Denies any nausea or vomiting. OBJECTIVE: Vital signs: Temperature 98.2 degrees, pulse rate 64, respiratory rate of 19, blood pressure 90/48, saturating 100% room air. Body weight of 98 pounds 9.6 ounces. BMI 18.6 kg/m. General Appearance: Thinly built, lying in bed, in no acute distress. HEENT: Pale conjunctivae. No icterus. Neck: Supple. Abdomen: Soft, mild discomfort. No rebound or guarding. Extremities: No cyanosis, clubbing. Neurologic: Alert, awake, oriented x3. LABORATORY DATA: Her hemoglobin and hematocrit is 8.7 and 26, white count of 5.64, platelet count of 128,000. Sodium 140, potassium 3.4, chloride 113, bicarb 20, anion gap 9, BUN of 17, creatinine 0.8, glucose of 104, calcium is 8. INR 1.12, PT of 15.3. Urine culture showing no growth. IMPRESSION AND PLAN: 1. Upper gastrointestinal bleeding secondary pyloric channel ulcer status post treatment and hemostasis with Dr. Hayes. We will continue to watch for hemoglobin and hematocrit and transfuse as needed. We will keep her on proton pump inhibitors b.i.d. We will start her on Carafate 1 g every 6 hours. 2. Iron deficiency anemia. She will get iron infusion per Dr. Osborne. 3. Hypokalemia. It is being replaced per primary care team. 4. She will continue clear liquid diet and Ensure twice daily. 5. Chronic pain. She is on methadone 10 mg p.o. t.i.d. 6. Prosthetic mitral valve. This is being managed by Dr. Osborne. 7. History of paroxysmal atrial fibrillation. Aware. 8. Will follow along. The above plans discussed with the patient and all questions answered. Please call us with any further questions. cc: MD Matias Falcon MD [facility]ERS[facility]
[2018-07-17] MEDS: SODIUM CHLORIDE 0.9% INJ SCH (19:56)
[2018-07-17] MEDS: ZOCOR PO SCH (22:14)
[2018-07-18] MEDS: CARAFATE LIQUID PO SCH ×4 (02:52→21:11)
[2018-07-18 05:43] LABS: INR 1.12; PROTIME 15.3 Seconds (11.0-16.0)
[2018-07-18 05:48] LABS: BASO# 0.02 X1000 (0.0-0.2); BASO% 0.3 % (0.0-0.8); EOS# 0.01 X1000 (0.0-0.7); EOS% 0.2 % (0.0-10.0); HEMATOCRIT 26.9 % (37.0-47.0); HEMOGLOBIN 8.9 g/dL (12.0-16.0); IMM GRAN# 0.04 X1000 (0.0-0.04); IMM GRAN% 0.7 % (0.0-0.5); LYMPH# 1.11 X1000 (1.2-3.4); LYMPH% 18.9 % (20.5-51.1); MCH 30.3 PG (27-31); MCHC 33.1 g/dL (33-37); MCV 91.5 FL (81-99); MONO# 0.52 X1000 (0.11-0.59); MONO% 8.9 % (1.7-9.3); MPV 10.3 FL (7.4-10.4); NEUT# 4.17 X1000 (1.4-6.5); PLT 153 X1000 (130-400); RBC 2.94 XMIL (4.2-5.4); RDW 13.9 % (11.5-14.5); WBC 5.87 X1000 (4.8-10.8)
[2018-07-18] MEDS: KLOR-CON PO SCH (08:47)
[2018-07-18] MEDS: PROTONIX IV SCH ×2 (08:47→21:11)
[2018-07-18] MEDS: METHADONE PO SCH ×3 (08:47→16:42)
[2018-07-18] MEDS: ICAR-C PLUS PO SCH (08:47)
[2018-07-18] MEDS: VITAMIN C PO SCH (08:51)
--- NOTE | 2018-07-18 20:09 | PROGRESS NOTE ---
DATE: 07/18/2018 SUBJECTIVE: The patient is doing very well. No signs of active GI bleeding noted. Tolerating the diet very well. Mental confusion is improving. PHYSICAL EXAMINATION: Vital signs: Temperature is 98.7 degrees, vitals are stable. HEENT: Within normal limits. Chest: Clear. Heart: Sounds are regular. Loud S1. Abdomen: Belly is soft, nontender. Extremities: No peripheral edema. LABORATORY DATA: CBC: White cell count 5.8, hematocrit 26.9, platelets 153,000. ASSESSMENT AND PLAN: 1. Upper gastrointestinal bleeding due to peptic ulcer disease clipping done. No signs of active GI bleeding noted. Stable hematocrit. 2. Status post prosthetic mitral valve. 3. Chronic pain and delirium, improving. PLAN OF CARE: Discontinue Maya. Check the orthostatic blood pressure. Daily CBC and BMP. PT/INR, restart on Coumadin. Continue IV Protonix, and slowly reconcile home medications and advance the diet. LEVEL OF DOCUMENTATION: 35 minutes. cc: Matias Osborne MD
[2018-07-18] MEDS: ZOCOR PO SCH (21:11)
[2018-07-18] MEDS: COUMADIN PO SCH (21:11)
--- NOTE | 2018-07-18 22:58 | PROVIDER PROGRESS NOTE ---
Progress Note SUBJECTIVE: No acute overnight events. Afebrile. No rectal bleeding. No N/V/F. Tolerating liquid diet. OBJECTIVE: Last Vital Signs Temp 98.1 F 07/18/18 20:00 Pulse 55 L 07/18/18 20:00 Resp 15 07/18/18 20:00 BP 105/56 07/18/18 20:00 Pulse Ox 98 07/18/18 20:00 Height 5 ft 1 in Weight 98 lb 9.6 oz GEN: awake, alert, NAD HEENT: anicteric, MMM NECK: supple, no jvd PULM: CTAB, no wheezing CV: regular, MV click, no murmurs ABD: soft NT/ND, NABS EXT: no cce NEURO: nonfocal, confused LABS 07/18/18 05:15 WBC 5.87 Hgb 8.9 L Plt Count 153 ASSESSMENT AND PLAN: Ms. Jaja Dillon is a 69-year-old woman with past medical history significant for atrial fibrillation, [facility] mechanical mitral valve replacement on Coumadin, history of gastrointestinal bleed and emphysema, who presented with bleeding pyloric channel ulcer s/p epinephrine and endoclip placement. Her hgb has remained stable without overt bleeding. She was started on warfarin today. #UGIB: 2/2 pylori channel ulcer - continue PPI BID, can transition to PO and continue for 3 months; then once daily in setting of anticoagulation - avoid NSAIDs - advance diet as tolerated #Anemia: acute blood loss; trend H/H, transfuse prn to maintain hgb 7-8 #Mechanical valve: warfarin restarted; goal INR is 2.5-3.5 #Afib: rate controlled #Emphysema: stable #AMS: HCT negative; likely underlying cognitive deficit Will sign off. Please call with questions or concerns. Follow-up in GI clinic in 4 weeks
[2018-07-19] MEDS: CARAFATE LIQUID PO SCH ×4 (02:37→21:39)
[2018-07-19 05:57] LABS: BASO# 0.02 X1000 (0.0-0.2); BASO% 0.3 % (0.0-0.8); EOS# 0.09 X1000 (0.0-0.7); EOS% 1.4 % (0.0-10.0); HEMATOCRIT 25.8 % (37.0-47.0); HEMOGLOBIN 8.5 g/dL (12.0-16.0); IMM GRAN# 0.03 X1000 (0.0-0.04); IMM GRAN% 0.5 % (0.0-0.5); LYMPH# 1.08 X1000 (1.2-3.4); LYMPH% 17.3 % (20.5-51.1); MCH 30.2 PG (27-31); MCHC 32.9 g/dL (33-37); MCV 91.8 FL (81-99); MONO# 0.55 X1000 (0.11-0.59); MONO% 8.8 % (1.7-9.3); MPV 10.5 FL (7.4-10.4); NEUT# 4.49 X1000 (1.4-6.5); NEUT% 71.7 % (42.2-75.2); PLT 181 X1000 (130-400); RBC 2.81 XMIL (4.2-5.4); RDW 13.5 % (11.5-14.5); WBC 6.26 X1000 (4.8-10.8)
[2018-07-19 06:00] LABS: INR 1.05; PROTIME 14.5 Seconds (11.0-16.0)
[2018-07-19 06:26] LABS: AGAP 7; BUN 9 mg/dL (8-22); CALCIUM 8.1 mg/dL (8.8-10.2); CHLORIDE 113 mmol/L (98-107); COSMO 287; CREATININE 0.8 mg/dL (0.5-0.9); ESTIMATED GFR > 60; GLUCOSE 98 mg/dL (70-104); POTASSIUM 3.3 mmol/L (3.5-5.1); SODIUM 145 mmol/L (136-145); TCO2 25 mmol/L (25-35)
[2018-07-19] MEDS: VITAMIN C PO SCH (08:27)
[2018-07-19] MEDS: PROTONIX IV SCH ×2 (08:27→21:39)
[2018-07-19] MEDS: POTASSIUM CHLORIDE 20 MEQ/SWI 20 MEQ/100 ML IVPB IV SCH ×2 (08:27→10:45)
[2018-07-19] MEDS: KLOR-CON PO SCH (08:28)
[2018-07-19] MEDS: ICAR-C PLUS PO SCH (08:28)
[2018-07-19] MEDS: METHADONE PO SCH ×3 (08:29→16:56)
[2018-07-19] MEDS ORDERED: NS 500 ML ONE (10:57)
--- NOTE | 2018-07-19 11:50 | OPERATIVE NOTE ---
PROCEDURE DATE: 07/16/2018 PROCEDURE PERFORMED: EGD and colonoscopy. SURGEON: Jose Manuel Hayes MD. INDICATIONS: GI bleed, hematochezia. MEDICATIONS: Monitored anesthesia care. DESCRIPTION OF PROCEDURE: Prior to the procedure a history and physical was performed. The patient's medications and allergies were reviewed. The patient's tolerance of previous anesthesia was also reviewed. The risks and benefits of the procedure and sedation options and risks were discussed with the patient. All questions were answered and informed consent was obtained. After reviewing the risks and benefits the patient was deemed in satisfactory condition to undergo the procedure. The colonoscope was passed under direct visualization. Throughout the procedure the patient's pressure, pulse and oxygen saturation was monitored continuously. The colonoscope was introduced through the anus and advanced to the cecum identified by the appendiceal orifice and ileocecal valve. The colonoscopy was accomplished without difficulty. The patient tolerated the procedure well, but the quality of the preparation was adequate. After noting melena seen throughout the colon, the patient's family member was called to obtain concerns given her altered mental status to do a subsequent upper GI endoscopy. The endoscope was introduced through the mouth and advanced to the second part of the duodenum. The upper GI endoscopy was accomplished without difficulty. The patient tolerated the procedure well. COMPLICATIONS: No immediate complications. ESTIMATED BLOOD LOSS: Minimal. FINDINGS: Within the colon there was thin melena seen throughout the colon without any evidence of lower GI bleeding. On subsequent upper endoscopy, a small hiatal hernia was noted in the esophagus, and within the stomach there was bright red blood seen throughout. Upon entering the duodenal bulb there was a bright red clot. This was irrigated copiously, blood was noted to be oozing in the proximal duodenal bulb, and a 5-mm cratered ulcer was found in the pyloric channel. This was treated with submucosal injection with 1 mL of epinephrine diluted 1:10,000 with hemostasis [*] of 2 Endo clips. There was no bleeding at the end of the procedure. The remainder of the duodenal bulb and the second portion of duodenum were normal. Retroflexion in the stomach was otherwise unremarkable. COMPLICATIONS: None. IMPRESSION: Melena seen in the colon. Small hiatal hernia. Bleeding pyloric channel ulcer status post epinephrine and Endo clip placement. Normal duodenum. RECOMMENDATIONS: Continue IV PPI b.i.d. Start heparin drip in the setting of mechanical mitral bowel. Continue to trend hemoglobin and hematocrit every 6 to 8 hours. Transfuse as needed to maintain a hemoglobin between 7 and 8. Keep NPO today. We will follow with you. Please call with any questions or concerns. cc: Matias Osborne MD
--- NOTE | 2018-07-19 19:01 | PROGRESS NOTE ---
DATE: 07/19/2018 SUBJECTIVE: The patient is a little better. Confusion is improving, tolerating the diet. No symptoms and signs of GI bleeding noted. No bleeding per rectum. Hemodynamics stable. EXAMINATION: Vital Signs: Temperature is 97, pulse 72, blood pressure 108/61. HEENT: Exam within normal limits. Neck: Supple. Chest: Clear. Heart: Sounds are regular. Abdomen: Belly is soft, nontender. Maya was discontinued. INVESTIGATIONS: CBC: White cell count 6.2, hematocrit 25.8, platelets 181. PT 14.5, INR 1.0. SMA-7: Sodium 145, potassium 3.3, chloride 113, BUN 9, creatinine 0.8, calcium 8.1. ASSESSMENT AND PLAN: 1. Upper gastrointestinal bleeding stable. 2. Hypokalemia. Replace the potassium. 3. Status post prosthetic mitral valve on warfarin, started 5 mg. Discontinue vitamin K. 4. Hyperlipidemia, on Zocor. 5. Chronic pain on methadone. 6. We will continue to monitor symptoms and signs of gastrointestinal bleeding and hopefully can discharge on Saturday. LEVEL OF DOCUMENTATION: 25 minutes. cc: Matias Osborne MD
[2018-07-19] MEDS: ZOCOR PO SCH (21:40)
[2018-07-19] MEDS: COUMADIN PO SCH (21:40)
[2018-07-20] MEDS: CARAFATE LIQUID PO SCH ×2 (01:21→08:11)
[2018-07-20 05:31] LABS: INR 1.05; PROTIME 14.6 Seconds (11.0-16.0)
[2018-07-20 05:48] LABS: BASO# 0.03 X1000 (0.0-0.2); BASO% 0.4 % (0.0-0.8); EOS# 0.08 X1000 (0.0-0.7); EOS% 1.2 % (0.0-10.0); HEMATOCRIT 26.3 % (37.0-47.0); HEMOGLOBIN 8.9 g/dL (12.0-16.0); IMM GRAN# 0.04 X1000 (0.0-0.04); IMM GRAN% 0.6 % (0.0-0.5); LYMPH# 0.87 X1000 (1.2-3.4); LYMPH% 12.5 % (20.5-51.1); MCH 30.9 PG (27-31); MCHC 33.8 g/dL (33-37); MCV 91.3 FL (81-99); MONO# 0.63 X1000 (0.11-0.59); MONO% 9.1 % (1.7-9.3); MPV 10.5 FL (7.4-10.4); NEUT% 76.2 % (42.2-75.2); PLT 214 X1000 (130-400); RBC 2.88 XMIL (4.2-5.4); RDW 13.3 % (11.5-14.5); WBC 6.95 X1000 (4.8-10.8)
[2018-07-20 05:54] LABS: AGAP 9; BUN 6 mg/dL (8-22); CALCIUM 8.3 mg/dL (8.8-10.2); CHLORIDE 109 mmol/L (98-107); COSMO 284; CREATININE 0.8 mg/dL (0.5-0.9); ESTIMATED GFR > 60; GLUCOSE 116 mg/dL (70-104); POTASSIUM 3.4 mmol/L (3.5-5.1); SODIUM 143 mmol/L (136-145); TCO2 25 mmol/L (25-35)
[2018-07-20 07:53] VITALS: BP 96/66
[2018-07-20] MEDS: KLOR-CON PO SCH (08:10)
[2018-07-20] MEDS: ICAR-C PLUS PO SCH (08:10)
[2018-07-20] MEDS: PROTONIX IV SCH (08:10)
[2018-07-20] MEDS: METHADONE PO SCH (08:10)
[2018-07-20] MEDS: VITAMIN C PO SCH (08:10)
[2018-07-20] MEDS ORDERED: DEMEROL IM ONE (11:17)
--- NOTE | 2018-07-20 11:46 | PROGRESS NOTE ---
DATE: 07/20/2018 OBJECTIVE: Vital signs: Stable, with temperature 98.7 degrees, heart rate 69, respirations 17, blood pressure 96/66, O2 saturation on room air 99%. LABORATORY: Hemoglobin 8.9, hematocrit 26.3, white blood count 6900 with normal differential. Sodium 143, potassium 3.4, BUN 6, creatinine 0.8, glucose 116, calcium 8.3. The patient has had no additional GI bleeding. Her appetite is good. She is alert and has no abdominal pain. There is history of EGD in the distant past, but none recently. She is a smoker. Patient is on warfarin, sucralfate, iron, methadone for chronic pain, Protonix, and potassium chloride. Her upper GI bleeding was related to a pyloric channel ulcer. She has a prosthetic mitral valve requiring the warfarin and history of atrial fibrillation. PLAN: Repeat hematocrit tomorrow and potassium. She could go home tomorrow if she has no further complications. cc: MD Matias Akhtar MD
--- NOTE | 2018-07-20 15:02 | DISCHARGE SUMMARY ---
ADMISSION DATE: 07/15/2018 DISCHARGE DATE: 07/20/2018 FINAL DIAGNOSES: 1. Pyloric channel ulcer. 2. Upper gastrointestinal bleeding. 3. Anemia secondary to gastrointestinal bleeding. CONSULTATION: Dr. Salvador. HISTORY: This is one of several [facility] admissions for this 68-year-old, white female with chronic pain who developed a gastric ulcer in the pyloric channel which has had some bleeding, resulting in anemia and weakness. On presentation, she had some mental confusion. There is history of chronic pain and she is on methadone and Neurontin. CT scan of her head revealed no hemorrhage, and mild atrophy. INITIAL LABORATORY: Hemoglobin 10.1, hematocrit 29.9, white blood count 5600. Sodium 149, potassium 3.3, BUN 30, creatinine 0.7, glucose 117, calcium 8.3. Troponin less than 0.01. HOSPITAL COURSE: EGD was done by Dr. Hayes and cautery of the ulcer. She had no subsequent bleeding. Hematocrit dropped as low as 25.8. Hematocrit this morning was 26.3. Dr. Osborne had told her that she might go home Saturday. After being seen this morning, she decided to leave without being discharged. The nurse called me an hour and a half after the patient had been seen, stating that the patient had left the hospital. She is to follow up with Dr. Osborne and is to continue her usual medications. She should be on Carafate and proton pump inhibitors. cc: MD Matias Akhtar MD
== END 2018-07-20 12:41 | disposition left against medical advice (07) | DRG 378 ==
LOC: SUPCPDRO → ED 11:58 → 3S 17:07 → SUATTDRO 17:07 → SUPCPDRO 17:07
PROVIDERS: ADMIT Internal Medicine; ATTEND Internal Medicine
CPT/HCPCS: 36430; 51701; 70450; 71020; 71046; 80048; 80053; 80101; 80301; 80307; 80324; 80345; 80346; 80353; 80358; 80361; 80365; 81001; 82270; 82550; 83605; 83992; 84484; 85014; 85018; 85025; 85027; 85379; 85610; 85730; 86850; 86870; 86900; 86901; 86905; 86920; 86922; 87088; 99285; A9270; C9113; G0431; G0434; G0479; G0480; J1439; J3430; J3480; J7030; J7040; J7050; P9016; P9017; P9612; S0109; S0164